=== PATIENT | male | born 1950 | race African-American/Black ===

== ENCOUNTER 2019-02-04 08:08 | Inpatient (IN) | payer MEDICARE, MEDICAID ==
[2019-02-04] VITALS (56 sets, daily range): BP systolic 71–118; BP diastolic 39–74
[~2019-02-04] VITALS: Ht 177.8 cm; Wt 60.9 kg
[2019-02-04] MEDS ORDERED: PIPERACILLIN/TAZ 3.375G PREMIX 50 ML IV ONE (08:30)
[2019-02-04] MEDS ORDERED: ETOMIDATE 2MG/ML 10ML VIAL IV ONE (08:30)
[2019-02-04] MEDS ORDERED: SUCCINYLCHOLINE CHLORIDE 200MG/10ML IV ONE (08:30)
[2019-02-04] MEDS ORDERED: VANCOMYCIN 1 G PREMIX 200 ML IV ONE (08:30)
[2019-02-04] MEDS ORDERED: PROPOFOL 10MG/ML 100ML 100 ML IV ONE (08:30)
[2019-02-04] MEDS ORDERED: SODIUM CHLORIDE 0.9% 1000ML BAG (SEPSIS BOLUS) IV ONE (08:30)
[2019-02-04 09:06] LABS: MEAN CORPUSCULAR HEMOGLOBIN 30.7 pg (28.0-32.0); MEAN CORPUSCULAR VOLUME 94.7 fL (80.0-94.0); MEAN PLATELET VOLUME 12.1 fl (7.4-10.4); RED BLOOD CELL COUNT 2.19 mill/uL (4.7-6.1); RED CELL DISTRIBUTION WIDTH 19.5 % (11.6-14.6)
[2019-02-04 09:19] LABS: HEMOGLOBIN. 6.7 g/dL (14.0-18.0)
[2019-02-04 09:20] LABS: HEMATOCRIT. 20.8 % (42.0-52.0); INR 1.2; PARTIAL THROMBOPLASTIN TIME 28.9 sec (23.4-31.0); PLATELET 332 x1000/uL (130-400); PROTHROMBIN TIME 12.5 sec (9.6-11.0)
[2019-02-04 09:51] LABS: BG BASE EXCESS 10.3 mmol/L (-2.0-2.0); BG CARBOXYHEMOGLOBIN 0.3 % (0.5-1.5); BG DEOXYHEMOGLOBIN 1.3 % (0.0-5.0); BG FRACTION INSPIRED OXYGEN 100; BG METHEMOGLOBIN 0.9 % (0.0-1.5); BG OXYGEN SATURATION 98.7 % (92.0-98.5); BG OXYHEMOGLOBIN 97.5 % (94.0-97.0); BG PCO2 41.9 mmHg (35.0-45.0); BG PH 7.527 (7.350-7.450); BG PO2 160.1 mmHg (75.0-100.0); BG SAMPLE SITE RIGHT BRACHIAL; BG TIDAL VOLUME(mL) 500 mL; BG TOTAL HEMOGLOBIN 7.6 g/dL (12.0-18.0); BG VENT MODE VENT - A/C; BG VENT RATE 12 set
[2019-02-04] MEDS ORDERED: LIDOCAINE HCL 1% 20ML VIAL (Pyxis) INJ ONE (10:11)
[2019-02-04 10:12] LABS: PLATELET ESTIMATE NORMAL
[2019-02-04] MEDS ORDERED: NOREPINEPHRINE 4 MG in DEXT 5% WATER 246 ML IV ONE (10:15)
[2019-02-04 10:28] LABS: BASOPHILS % 0.2 % (0.0-2.0); EOSINOPHILS % 0.1 % (0.0-5.0); HEMATOCRIT. 23.3 % (42.0-52.0); HEMOGLOBIN. 7.3 g/dL (14.0-18.0); LYMPHOCYTES % 21.4 % (20.0-50.0); MEAN CORPUSCULAR HEMOGLOBIN 29.1 pg (28.0-32.0); MEAN CORPUSCULAR VOLUME 93.1 fL (80.0-94.0); MONOCYTES % 3.5 % (2.0-8.0); NEUTROPHILS % 74.8 % (40.0-76.0); RED BLOOD CELL COUNT 2.51 mill/uL (4.7-6.1); RED CELL DISTRIBUTION WIDTH 18.6 % (11.6-14.6)
[2019-02-04 10:47] LABS: CHLORIDE 123 mEq/L (98-107)
[2019-02-04 10:48] LABS: PLATELET ESTIMATE NORMAL
[2019-02-04] MEDS ORDERED: NOREPINEPHRINE 4MG/250ML PMX 250 ML IV NR (11:15)
[2019-02-04] MEDS ORDERED: NOREPINEPHRINE 8 MG in DEXT 5% WATER 242 ML IV PRN (11:30)
[2019-02-04] MEDS ORDERED: PROPOFOL 10MG/ML 100ML 100 ML IV PRN (11:30)
[2019-02-04] MEDS ORDERED: DEXT 5%/0.45% NACL 1000ML 1,000 ML IV SCH (13:13)
[2019-02-04] MEDS ORDERED: ONDANSETRON HCL 4MG/2ML INJ IV PRN (13:15)
[2019-02-04] MEDS ORDERED: PIPERACILLIN/TAZ 3.375G PREMIX 50 ML IV SCH (13:15)
[2019-02-04] MEDS ORDERED: ACETAMINOPHEN 325MG TABLET GT PRN (13:15)
[2019-02-04] MEDS: DEXTROSE 5% WATER 1,000 ML IV SCH (14:15)
[2019-02-04] MEDS: NOREPINEPHRINE 8 MG in DEXT 5% WATER 242 ML IV PRN (15:00)
[2019-02-04 15:38] LABS: BG BASE EXCESS 5.3 mmol/L (-2.0-2.0); BG CARBOXYHEMOGLOBIN 0.3 % (0.5-1.5); BG METHEMOGLOBIN 0.8 % (0.0-1.5); BG OXYGEN SATURATION 94.9 % (92.0-98.5); BG OXYHEMOGLOBIN 93.9 % (94.0-97.0); BG PCO2 37.9 mmHg (35.0-45.0); BG PH 7.501 (7.350-7.450); BG PO2 75.5 mmHg (75.0-100.0); BG SAMPLE SITE RIGHT RADIAL; BG TIDAL VOLUME(mL) 500 mL; BG TOTAL HEMOGLOBIN 5.8 g/dL (12.0-18.0); BG VENT MODE VENT - A/C; BG VENT RATE 12 set
[2019-02-04 16:15] LABS: CLARITY URINE CLEAR (CLEAR); COLOR URINE YELLOW (YELLOW); KETONES URINE NEGATIVE (NEGATIVE); LEUKOCYTE ESTERASE URINE TRACE (NEGATIVE); NITRITE URINE NEGATIVE (NEGATIVE); OCCULT BLOOD URINE 1+ (NEGATIVE); PROTEIN URINE 1+ (NEGATIVE)
[2019-02-04] MEDS: IPRATROPIUM/ALBUTEROL 0.5-3(2.5)MG/3ML NEB HHN SCH ×2 (16:23→20:17)
[2019-02-04] MEDS: ACETYLCYSTEINE 100MG/ML 10% VIAL 4ML INH SCH (16:23)
[2019-02-04] MEDS: PIPERACILLIN/TAZOBACTAM 3.375 G in DEXT 5% WATER 100 ML IV SCH (16:55)
[2019-02-04] MEDS ORDERED: DOCUSATE SODIUM 100MG CAPSULE GT SCH (17:00)
[2019-02-04] MEDS: DOCUSATE SODIUM SUGAR FREE 100MG/10ML UDC GT SCH (17:49)
[2019-02-04] MEDS: MIDODRINE HCL 5MG TABLET GT SCH (17:49)
[2019-02-04] MEDS: AMIODARONE HCL 200 MG TABLET GT SCH (17:49)
[2019-02-04] MEDS: BLOOD SUGAR DIAGNOSTIC STRIP TEST SCH (18:00)
[2019-02-04] MEDS: INSULIN LISPRO 100 UNITS/ML SUBCUT SCH (18:00)
[2019-02-04 18:25] LABS: CREATINE KINASE MB FRACTION < 1.0 ng/mL (0.5-3.6)
[2019-02-04 19:26] LABS: FOLIC ACID (FOLATE) SERUM > 20.00 ng/mL (>5.38)
[2019-02-04 19:33] LABS: VITAMIN B12 SERUM 768 pg/mL (211-911)
[2019-02-04] MEDS ORDERED: DEXTROSE 50% WATER 50ML SYRINGE IV PRN (19:45)
[2019-02-04 20:21] LABS: FERRITIN 2975 ng/mL (22-322)
[2019-02-05] VITALS (85 sets, daily range): BP systolic 65–131; BP diastolic 35–92
[2019-02-05 00:02] LABS: HEMATOCRIT 24.2 % (42.0-52.0); HEMOGLOBIN 7.9 g/dL (14.0-18.0)
[2019-02-05 00:14] LABS: CREATINE KINASE MB FRACTION < 1.0 ng/mL (0.5-3.6)
[2019-02-05] MEDS: PIPERACILLIN/TAZOBACTAM 3.375 G in DEXT 5% WATER 100 ML IV SCH ×3 (01:00→15:53)
[2019-02-05] MEDS: INSULIN LISPRO 100 UNITS/ML SUBCUT SCH ×4 (01:01→17:55)
[2019-02-05] MEDS: NOREPINEPHRINE 8 MG in DEXT 5% WATER 242 ML IV PRN ×3 (01:03→17:56)
[2019-02-05] MEDS: IPRATROPIUM/ALBUTEROL 0.5-3(2.5)MG/3ML NEB HHN SCH ×5 (02:33→20:35)
[2019-02-05] MEDS: ACETYLCYSTEINE 100MG/ML 10% VIAL 4ML INH SCH ×3 (02:33→16:53)
[2019-02-05] MEDS: DEXTROSE 5% WATER 1,000 ML IV SCH ×2 (02:50→15:47)
[2019-02-05 05:36] LABS: BASOPHILS % 0.1 % (0.0-2.0); EOSINOPHILS % 0.2 % (0.0-5.0); HEMATOCRIT. 24.6 % (42.0-52.0); LYMPHOCYTES % 19.5 % (20.0-50.0); MEAN CORPUSCULAR HEMOGLOBIN 29.3 pg (28.0-32.0); MEAN CORPUSCULAR VOLUME 90.6 fL (80.0-94.0); MEAN PLATELET VOLUME 12.5 fl (7.4-10.4); MONOCYTES % 2.9 % (2.0-8.0); NEUTROPHILS % 77.3 % (40.0-76.0); PLATELET 98 x1000/uL (130-400); RED BLOOD CELL COUNT 2.72 mill/uL (4.7-6.1); RED CELL DISTRIBUTION WIDTH 17.5 % (11.6-14.6)
[2019-02-05 05:39] LABS: CHLORIDE 124 mEq/L (98-107)
[2019-02-05] MEDS: AMIODARONE HCL 200 MG TABLET GT SCH ×2 (06:00→17:53)
[2019-02-05] MEDS: BLOOD SUGAR DIAGNOSTIC STRIP TEST SCH ×4 (06:24→17:47)
[2019-02-05] MEDS ORDERED: VANCOMYCIN 1 G PREMIX 200 ML IV SCH (07:00)
[2019-02-05] MEDS ORDERED: POTASSIUM CHLORIDE 20MEQ/PACKET PO NR (07:15)
[2019-02-05 07:59] LABS: BG BASE EXCESS 4.5 mmol/L (-2.0-2.0); BG CARBOXYHEMOGLOBIN 0.2 % (0.5-1.5); BG FRACTION INSPIRED OXYGEN 50; BG METHEMOGLOBIN 0.3 % (0.0-1.5); BG OXYHEMOGLOBIN 97.5 % (94.0-97.0); BG PCO2 37.2 mmHg (35.0-45.0); BG PH 7.495 (7.350-7.450); BG PO2 103.6 mmHg (75.0-100.0); BG SAMPLE SITE RIGHT RADIAL; BG TIDAL VOLUME(mL) 500 mL; BG TOTAL HEMOGLOBIN 8.7 g/dL (12.0-18.0); BG VENT MODE VENT - A/C; BG VENT RATE 12 set
[2019-02-05] MEDS: MIDODRINE HCL 5MG TABLET GT SCH ×3 (09:02→17:53)
[2019-02-05] MEDS: DOCUSATE SODIUM SUGAR FREE 100MG/10ML UDC GT SCH ×2 (09:02→17:53)
[2019-02-05] MEDS: FAMOTIDINE 20MG/2ML VIAL IV SCH (09:03)
[2019-02-05 09:21] LABS: PHOSPHORUS 1.9 mg/dL (2.5-4.9)
[2019-02-05] MEDS ORDERED: BISACODYL 10MG SUPP PR PRN (10:30)
[2019-02-05] MEDS ORDERED: BISACODYL 5MG TABLET PO PRN (10:30)
[2019-02-05] MEDS ORDERED: SUCCINYLCHOLINE CHLORIDE 200MG/10ML IV ONE (17:25)
[2019-02-05] MEDS ORDERED: ETOMIDATE 2MG/ML 10ML VIAL IV ONE (17:25)
[2019-02-05] MEDS: VANCOMYCIN 1 G PREMIX 200 ML IV SCH (18:55)
[2019-02-05 20:22] LABS: HEMATOCRIT 25.4 % (42.0-52.0); HEMOGLOBIN 8.2 g/dL (14.0-18.0)
[2019-02-06] VITALS (90 sets, daily range): BP systolic 73–129; BP diastolic 43–75
[2019-02-06] MEDS: ACETYLCYSTEINE 100MG/ML 10% VIAL 4ML INH SCH ×2 (00:23→08:27)
[2019-02-06] MEDS: IPRATROPIUM/ALBUTEROL 0.5-3(2.5)MG/3ML NEB HHN SCH ×5 (00:23→20:35)
[2019-02-06] MEDS: PIPERACILLIN/TAZOBACTAM 3.375 G in DEXT 5% WATER 100 ML IV SCH ×3 (00:44→17:19)
[2019-02-06] MEDS: INSULIN LISPRO 100 UNITS/ML SUBCUT SCH ×4 (00:44→17:20)
[2019-02-06] MEDS: BLOOD SUGAR DIAGNOSTIC STRIP TEST SCH ×4 (00:45→17:20)
[2019-02-06] MEDS: NOREPINEPHRINE 8 MG in DEXT 5% WATER 242 ML IV PRN ×3 (01:42→19:31)
[2019-02-06 05:23] LABS: CHLORIDE 118 mEq/L (98-107)
[2019-02-06 05:25] LABS: BASOPHILS % 0.2 % (0.0-2.0); EOSINOPHILS % 1.2 % (0.0-5.0); HEMATOCRIT. 25.3 % (42.0-52.0); HEMOGLOBIN. 8.1 g/dL (14.0-18.0); LYMPHOCYTES % 16.2 % (20.0-50.0); MEAN CORPUSCULAR HEMOGLOBIN 29.2 pg (28.0-32.0); MEAN PLATELET VOLUME 12.5 fl (7.4-10.4); MONOCYTES % 3.3 % (2.0-8.0); NEUTROPHILS % 79.1 % (40.0-76.0); PLATELET 92 x1000/uL (130-400); RED BLOOD CELL COUNT 2.78 mill/uL (4.7-6.1); RED CELL DISTRIBUTION WIDTH 17.4 % (11.6-14.6)
[2019-02-06 05:31] LABS: PHOSPHORUS 1.6 mg/dL (2.5-4.9)
[2019-02-06] MEDS: DEXTROSE 5% WATER 1,000 ML IV SCH (05:54)
[2019-02-06] MEDS: AMIODARONE HCL 200 MG TABLET GT SCH ×2 (06:00→17:19)
[2019-02-06] MEDS: VANCOMYCIN 1 G PREMIX 200 ML IV SCH (07:08)
[2019-02-06] MEDS ORDERED: POTASSIUM PHOS,M-BASIC-D-BASIC 20 MMOL in DEXT 5% WATER 243.3333 ML IV NR (09:00)
[2019-02-06] MEDS: MIDODRINE HCL 5MG TABLET GT SCH ×3 (09:33→17:19)
[2019-02-06] MEDS: FAMOTIDINE 20MG/2ML VIAL IV SCH (09:33)
[2019-02-06] MEDS: DOCUSATE SODIUM SUGAR FREE 100MG/10ML UDC GT SCH ×2 (09:33→17:19)
[2019-02-06 10:19] LABS: BG BASE EXCESS 4.4 mmol/L (-2.0-2.0); BG CARBOXYHEMOGLOBIN 0.3 % (0.5-1.5); BG DEOXYHEMOGLOBIN 2.2 % (0.0-5.0); BG FRACTION INSPIRED OXYGEN 50; BG HCO3 ACT 28.1 mmol/L (22.0-26.0); BG METHEMOGLOBIN 0.4 % (0.0-1.5); BG OXYGEN SATURATION 97.8 % (92.0-98.5); BG OXYHEMOGLOBIN 97.1 % (94.0-97.0); BG PCO2 38.2 mmHg (35.0-45.0); BG PH 7.485 (7.350-7.450); BG PO2 104.2 mmHg (75.0-100.0); BG PRESSURE SUPPORT 12; BG SAMPLE SITE RIGHT RADIAL; BG TIDAL VOLUME(mL) 500 mL; BG TOTAL HEMOGLOBIN 7.9 g/dL (12.0-18.0); BG VENT MODE VENT - SIMV; BG VENT RATE 10 set
[2019-02-06] MEDS ORDERED: LORAZEPAM 2MG/ML CPJ IV PRN (11:30)
[2019-02-07] VITALS (101 sets, daily range): BP systolic 69–124; BP diastolic 41–80
[2019-02-07] MEDS: IPRATROPIUM/ALBUTEROL 0.5-3(2.5)MG/3ML NEB HHN SCH ×7 (00:15→20:32)
[2019-02-07] MEDS: ACETYLCYSTEINE 100MG/ML 10% VIAL 4ML INH SCH ×3 (00:16→17:37)
[2019-02-07] MEDS: BLOOD SUGAR DIAGNOSTIC STRIP TEST SCH ×4 (00:33→17:22)
[2019-02-07] MEDS: VANCOMYCIN 750 MG PREMIX 150 ML IV SCH ×2 (00:40→19:54)
[2019-02-07] MEDS: PIPERACILLIN/TAZOBACTAM 3.375 G in DEXT 5% WATER 100 ML IV SCH ×2 (00:40→09:27)
[2019-02-07] MEDS: INSULIN LISPRO 100 UNITS/ML SUBCUT SCH ×4 (06:00→17:23)
[2019-02-07] MEDS: AMIODARONE HCL 200 MG TABLET GT SCH ×2 (06:23→17:24)
[2019-02-07] MEDS: NOREPINEPHRINE 8 MG in DEXT 5% WATER 242 ML IV PRN ×2 (06:33→20:29)
[2019-02-07 08:30] LABS: BG CARBOXYHEMOGLOBIN 0.3 % (0.5-1.5); BG DEOXYHEMOGLOBIN 1.8 % (0.0-5.0); BG FRACTION INSPIRED OXYGEN 50; BG HCO3 ACT 25.2 mmol/L (22.0-26.0); BG METHEMOGLOBIN 0.4 % (0.0-1.5); BG OXYGEN SATURATION 98.2 % (92.0-98.5); BG OXYHEMOGLOBIN 97.5 % (94.0-97.0); BG PCO2 33.8 mmHg (35.0-45.0); BG PH 7.491 (7.350-7.450); BG PO2 107.9 mmHg (75.0-100.0); BG PRESSURE SUPPORT 12; BG SAMPLE SITE RIGHT RADIAL; BG TIDAL VOLUME(mL) 500 mL; BG TOTAL HEMOGLOBIN 8.2 g/dL (12.0-18.0); BG VENT MODE VENT - SIMV; BG VENT RATE 10 set
[2019-02-07 08:34] LABS: BASOPHILS % 0.3 % (0.0-2.0); EOSINOPHILS % 1.9 % (0.0-5.0); HEMATOCRIT. 23.2 % (42.0-52.0); HEMOGLOBIN. 7.5 g/dL (14.0-18.0); LYMPHOCYTES % 13.7 % (20.0-50.0); MEAN CORPUSCULAR HEMOGLOBIN 29.4 pg (28.0-32.0); MEAN CORPUSCULAR VOLUME 91.1 fL (80.0-94.0); MEAN PLATELET VOLUME 12.6 fl (7.4-10.4); MONOCYTES % 3.2 % (2.0-8.0); NEUTROPHILS % 80.9 % (40.0-76.0); PLATELET 98 x1000/uL (130-400); RED BLOOD CELL COUNT 2.55 mill/uL (4.7-6.1); RED CELL DISTRIBUTION WIDTH 17.3 % (11.6-14.6)
[2019-02-07 08:45] LABS: CHLORIDE 110 mEq/L (98-107)
[2019-02-07 08:51] LABS: PHOSPHORUS 2.3 mg/dL (2.5-4.9)
[2019-02-07] MEDS: MIDODRINE HCL 5MG TABLET GT SCH ×3 (09:24→16:48)
[2019-02-07] MEDS: FAMOTIDINE 20MG/2ML VIAL IV SCH (09:25)
[2019-02-07] MEDS: DOCUSATE SODIUM SUGAR FREE 100MG/10ML UDC GT SCH ×2 (09:25→16:47)
[2019-02-07] MEDS: MORPHINE SULFATE 2 MG/ML CPJ (NOT FOR IM USE) IV PRN (11:24)
[2019-02-07] MEDS ORDERED: POTASSIUM PHOS,M-BASIC-D-BASIC 10 MMOL in DEXT 5% WATER 246.6667 ML IV SCH (14:00)
[2019-02-07] MEDS: DEXTROSE 5% WATER 1,000 ML IV SCH ×2 (15:58→22:15)
[2019-02-07] MEDS: MEROPENEM 1,000 MG in SODIUM CHLORIDE 0.9% 100 ML IV SCH ×2 (16:47→23:00)
[2019-02-08] VITALS (90 sets, daily range): BP systolic 78–154; BP diastolic 29–88
[2019-02-08] MEDS: ACETYLCYSTEINE 100MG/ML 10% VIAL 4ML INH SCH ×3 (00:29→16:12)
[2019-02-08] MEDS: IPRATROPIUM/ALBUTEROL 0.5-3(2.5)MG/3ML NEB HHN SCH ×6 (00:29→21:24)
[2019-02-08 05:30] LABS: CHLORIDE 106 mEq/L (98-107)
[2019-02-08 05:46] LABS: BASOPHILS % 0.2 % (0.0-2.0); EOSINOPHILS % 1.8 % (0.0-5.0); HEMATOCRIT. 27.5 % (42.0-52.0); HEMOGLOBIN. 8.8 g/dL (14.0-18.0); LYMPHOCYTES % 13.7 % (20.0-50.0); MEAN CORPUSCULAR HEMOGLOBIN 29.2 pg (28.0-32.0); MEAN CORPUSCULAR VOLUME 90.9 fL (80.0-94.0); MEAN PLATELET VOLUME 12.1 fl (7.4-10.4); NEUTROPHILS % 80.3 % (40.0-76.0); PLATELET 93 x1000/uL (130-400); RED BLOOD CELL COUNT 3.03 mill/uL (4.7-6.1); RED CELL DISTRIBUTION WIDTH 17.2 % (11.6-14.6)
[2019-02-08] MEDS: INSULIN LISPRO 100 UNITS/ML SUBCUT SCH ×5 (06:00→23:58)
[2019-02-08] MEDS: BLOOD SUGAR DIAGNOSTIC STRIP TEST SCH ×5 (06:00→23:58)
[2019-02-08] MEDS: MEROPENEM 1,000 MG in SODIUM CHLORIDE 0.9% 100 ML IV SCH ×3 (06:49→21:53)
[2019-02-08] MEDS: AMIODARONE HCL 200 MG TABLET GT SCH ×2 (06:49→17:18)
[2019-02-08 07:59] LABS: BG BASE EXCESS 0.8 mmol/L (-2.0-2.0); BG DEOXYHEMOGLOBIN 2.5 % (0.0-5.0); BG FRACTION INSPIRED OXYGEN 40; BG METHEMOGLOBIN 0.4 % (0.0-1.5); BG OXYGEN SATURATION 97.5 % (92.0-98.5); BG OXYHEMOGLOBIN 97.1 % (94.0-97.0); BG PH 7.493 (7.350-7.450); BG PO2 93.3 mmHg (75.0-100.0); BG SAMPLE SITE RIGHT BRACHIAL; BG TIDAL VOLUME(mL) 500 mL; BG TOTAL HEMOGLOBIN 7.5 g/dL (12.0-18.0); BG VENT MODE VENT - A/C; BG VENT RATE 14 set
[2019-02-08] MEDS: NOREPINEPHRINE 8 MG in DEXT 5% WATER 242 ML IV PRN ×2 (08:00→18:09)
[2019-02-08] MEDS: MORPHINE SULFATE 2 MG/ML CPJ (NOT FOR IM USE) IV PRN (08:23)
[2019-02-08] MEDS: MIDODRINE HCL 5MG TABLET GT SCH ×3 (08:26→17:18)
[2019-02-08] MEDS: FAMOTIDINE 20MG/2ML VIAL IV SCH (08:26)
[2019-02-08] MEDS: DOCUSATE SODIUM SUGAR FREE 100MG/10ML UDC GT SCH ×2 (09:09→17:18)
[2019-02-08 10:44] LABS: BG BASE EXCESS 4.1 mmol/L (-2.0-2.0); BG CARBOXYHEMOGLOBIN 0.2 % (0.5-1.5); BG CPAP (cmH2O) 0 cm(H2O); BG DEOXYHEMOGLOBIN 3.6 % (0.0-5.0); BG HCO3 ACT 28.2 mmol/L (22.0-26.0); BG METHEMOGLOBIN 0.2 % (0.0-1.5); BG OXYGEN SATURATION 96.4 % (92.0-98.5); BG PCO2 40.3 mmHg (35.0-45.0); BG PH 7.463 (7.350-7.450); BG PO2 85.2 mmHg (75.0-100.0); BG SAMPLE SITE RIGHT RADIAL; BG TOTAL HEMOGLOBIN 8.2 g/dL (12.0-18.0); BG VENT MODE VENT - CPAP
[2019-02-08] MEDS: VANCOMYCIN 750 MG PREMIX 150 ML IV SCH (12:47)
[2019-02-08 16:10] LABS: BG BASE EXCESS 1.4 mmol/L (-2.0-2.0); BG CARBOXYHEMOGLOBIN 0.1 % (0.5-1.5); BG DEOXYHEMOGLOBIN 5.2 % (0.0-5.0); BG FRACTION INSPIRED OXYGEN 40; BG HCO3 ACT 24.7 mmol/L (22.0-26.0); BG METHEMOGLOBIN 0.2 % (0.0-1.5); BG OXYGEN SATURATION 94.8 % (92.0-98.5); BG OXYHEMOGLOBIN 94.5 % (94.0-97.0); BG PCO2 33.7 mmHg (35.0-45.0); BG PH 7.483 (7.350-7.450); BG PO2 72.6 mmHg (75.0-100.0); BG SAMPLE SITE RIGHT BRACHIAL; BG TOTAL HEMOGLOBIN 8.7 g/dL (12.0-18.0); BG VENT MODE MASK - AEROSOL
[2019-02-09] VITALS (90 sets, daily range): BP systolic 84–123; BP diastolic 46–78
[2019-02-09] MEDS: IPRATROPIUM/ALBUTEROL 0.5-3(2.5)MG/3ML NEB HHN SCH ×6 (00:08→20:18)
[2019-02-09] MEDS: ACETYLCYSTEINE 100MG/ML 10% VIAL 4ML INH SCH ×3 (00:09→15:47)
[2019-02-09] MEDS: NOREPINEPHRINE 8 MG in DEXT 5% WATER 242 ML IV PRN ×3 (02:45→18:48)
[2019-02-09] MEDS: INSULIN LISPRO 100 UNITS/ML SUBCUT SCH ×4 (06:00→23:49)
[2019-02-09] MEDS: BLOOD SUGAR DIAGNOSTIC STRIP TEST SCH ×4 (06:24→23:39)
[2019-02-09] MEDS: AMIODARONE HCL 200 MG TABLET GT SCH ×2 (06:26→17:17)
[2019-02-09] MEDS: MEROPENEM 1,000 MG in SODIUM CHLORIDE 0.9% 100 ML IV SCH ×2 (06:30→13:00)
[2019-02-09 06:41] LABS: CHLORIDE 109 mEq/L (98-107)
[2019-02-09 07:29] LABS: BASOPHILS % 0.3 % (0.0-2.0); EOSINOPHILS % 2.4 % (0.0-5.0); HEMATOCRIT. 29.2 % (42.0-52.0); HEMOGLOBIN. 9.4 g/dL (14.0-18.0); LYMPHOCYTES % 16.6 % (20.0-50.0); MEAN CORPUSCULAR HEMOGLOBIN 29.1 pg (28.0-32.0); MEAN CORPUSCULAR VOLUME 90.2 fL (80.0-94.0); MEAN PLATELET VOLUME 11.1 fl (7.4-10.4); MONOCYTES % 3.9 % (2.0-8.0); NEUTROPHILS % 76.8 % (40.0-76.0); PLATELET 138 x1000/uL (130-400); RED BLOOD CELL COUNT 3.24 mill/uL (4.7-6.1); RED CELL DISTRIBUTION WIDTH 17.4 % (11.6-14.6)
[2019-02-09] MEDS ORDERED: NOREPINEPHRINE 8 MG in DEXT 5% WATER 242 ML IV PRN (09:15)
[2019-02-09] MEDS: MIDODRINE HCL 5MG TABLET GT SCH ×3 (09:52→17:17)
[2019-02-09] MEDS: DOCUSATE SODIUM SUGAR FREE 100MG/10ML UDC GT SCH ×2 (09:52→17:17)
[2019-02-09] MEDS: ALBUMIN HUMAN 25GM/100ML (25%) IV SCH (09:53)
[2019-02-09] MEDS: VANCOMYCIN 750 MG PREMIX 150 ML IV SCH (10:41)
[2019-02-09] MEDS: FAMOTIDINE 20MG/2ML VIAL IV SCH (10:41)
[2019-02-09] MEDS ORDERED: MORPHINE SULFATE 2 MG/ML CPJ (NOT FOR IM USE) IV PRN (11:30)
[2019-02-09] MEDS: CEFTRIAXONE 1 G PREMIX 50 ML IV SCH (15:19)
[2019-02-09] MEDS: METRONIDAZOLE 500MG TABLET PO SCH (21:27)
[2019-02-10] VITALS (101 sets, daily range): BP systolic 78–159; BP diastolic 38–98
[2019-02-10] MEDS: IPRATROPIUM/ALBUTEROL 0.5-3(2.5)MG/3ML NEB HHN SCH ×6 (00:53→23:59)
[2019-02-10] MEDS: INSULIN LISPRO 100 UNITS/ML SUBCUT SCH ×3 (06:00→18:00)
[2019-02-10] MEDS: VANCOMYCIN 1 G PREMIX 200 ML IV SCH ×2 (06:06→23:56)
[2019-02-10] MEDS: BLOOD SUGAR DIAGNOSTIC STRIP TEST SCH ×4 (06:07→23:56)
[2019-02-10] MEDS: AMIODARONE HCL 200 MG TABLET GT SCH ×2 (06:17→17:19)
[2019-02-10] MEDS: METRONIDAZOLE 500MG TABLET PO SCH ×2 (08:22→20:09)
[2019-02-10] MEDS: MIDODRINE HCL 5MG TABLET GT SCH ×3 (08:22→16:07)
[2019-02-10] MEDS: DOCUSATE SODIUM SUGAR FREE 100MG/10ML UDC GT SCH ×2 (08:22→16:08)
[2019-02-10] MEDS: FAMOTIDINE 20MG/2ML VIAL IV SCH (08:23)
[2019-02-10] MEDS: ALBUMIN HUMAN 25GM/100ML (25%) IV SCH (08:23)
[2019-02-10 10:59] LABS: BASOPHILS % 0.2 % (0.0-2.0); EOSINOPHILS % 1.8 % (0.0-5.0); HEMATOCRIT. 25.3 % (42.0-52.0); HEMOGLOBIN. 8.2 g/dL (14.0-18.0); LYMPHOCYTES % 21.5 % (20.0-50.0); MEAN CORPUSCULAR HEMOGLOBIN 28.9 pg (28.0-32.0); MEAN CORPUSCULAR VOLUME 89.5 fL (80.0-94.0); MEAN PLATELET VOLUME 11.1 fl (7.4-10.4); MONOCYTES % 5.5 % (2.0-8.0); PLATELET 139 x1000/uL (130-400); RED BLOOD CELL COUNT 2.83 mill/uL (4.7-6.1); RED CELL DISTRIBUTION WIDTH 17.7 % (11.6-14.6)
[2019-02-10 11:07] LABS: CHLORIDE 107 mEq/L (98-107)
[2019-02-10] MEDS: CEFTRIAXONE 1 G PREMIX 50 ML IV SCH (15:08)
[2019-02-10] MEDS: NOREPINEPHRINE 8 MG in DEXT 5% WATER 242 ML IV PRN (22:00)
[2019-02-11] VITALS (100 sets, daily range): BP systolic 82–136; BP diastolic 34–88
[2019-02-11] MEDS: IPRATROPIUM/ALBUTEROL 0.5-3(2.5)MG/3ML NEB HHN SCH ×5 (03:05→20:30)
[2019-02-11] MEDS: BLOOD SUGAR DIAGNOSTIC STRIP TEST SCH ×3 (05:25→18:08)
[2019-02-11] MEDS: AMIODARONE HCL 200 MG TABLET GT SCH ×2 (05:30→18:08)
[2019-02-11] MEDS: INSULIN LISPRO 100 UNITS/ML SUBCUT SCH ×4 (05:40→18:00)
[2019-02-11 06:54] LABS: BASOPHILS % 0.3 % (0.0-2.0); EOSINOPHILS % 1.8 % (0.0-5.0); HEMATOCRIT. 22.3 % (42.0-52.0); HEMOGLOBIN. 7.3 g/dL (14.0-18.0); LYMPHOCYTES % 20.8 % (20.0-50.0); MEAN CORPUSCULAR HEMOGLOBIN 29.2 pg (28.0-32.0); MEAN CORPUSCULAR VOLUME 89.7 fL (80.0-94.0); MEAN PLATELET VOLUME 10.2 fl (7.4-10.4); MONOCYTES % 5.5 % (2.0-8.0); NEUTROPHILS % 71.6 % (40.0-76.0); PLATELET 175 x1000/uL (130-400); RED BLOOD CELL COUNT 2.49 mill/uL (4.7-6.1); RED CELL DISTRIBUTION WIDTH 17.5 % (11.6-14.6)
[2019-02-11 07:20] LABS: CHLORIDE 106 mEq/L (98-107)
[2019-02-11] MEDS: DOCUSATE SODIUM SUGAR FREE 100MG/10ML UDC GT SCH ×2 (08:20→17:53)
[2019-02-11] MEDS: FAMOTIDINE 20MG/2ML VIAL IV SCH (08:20)
[2019-02-11] MEDS: METRONIDAZOLE 500MG TABLET PO SCH ×2 (08:20→21:18)
[2019-02-11] MEDS: ALBUMIN HUMAN 25GM/100ML (25%) IV SCH (08:20)
[2019-02-11] MEDS: MIDODRINE HCL 5MG TABLET GT SCH ×3 (08:21→17:53)
[2019-02-11] MEDS ORDERED: SORBITOL 70% SOLN 30ML PO NR (12:15)
[2019-02-11] MEDS: NOREPINEPHRINE 8 MG in DEXT 5% WATER 242 ML IV PRN (15:13)
[2019-02-11] MEDS: VANCOMYCIN 1 G PREMIX 200 ML IV SCH (21:17)
[2019-02-11] MEDS: CEFTRIAXONE 1 G PREMIX 50 ML IV SCH (21:17)
[2019-02-12] VITALS (73 sets, daily range): BP systolic 79–124; BP diastolic 47–80
[2019-02-12] MEDS: IPRATROPIUM/ALBUTEROL 0.5-3(2.5)MG/3ML NEB HHN SCH ×6 (00:58→22:51)
[2019-02-12] MEDS: NOREPINEPHRINE 8 MG in DEXT 5% WATER 242 ML IV PRN (05:42)
[2019-02-12] MEDS: INSULIN LISPRO 100 UNITS/ML SUBCUT SCH ×4 (05:43→23:22)
[2019-02-12] MEDS: AMIODARONE HCL 200 MG TABLET GT SCH (05:43)
[2019-02-12] MEDS: BLOOD SUGAR DIAGNOSTIC STRIP TEST SCH ×4 (05:43→23:22)
[2019-02-12 07:23] LABS: BASOPHILS % 0.3 % (0.0-2.0); EOSINOPHILS % 1.5 % (0.0-5.0); HEMATOCRIT. 27.1 % (42.0-52.0); HEMOGLOBIN. 8.8 g/dL (14.0-18.0); MEAN CORPUSCULAR HEMOGLOBIN 29.5 pg (28.0-32.0); MEAN CORPUSCULAR VOLUME 90.5 fL (80.0-94.0); MEAN PLATELET VOLUME 10.3 fl (7.4-10.4); MONOCYTES % 4.3 % (2.0-8.0); NEUTROPHILS % 75.9 % (40.0-76.0); PLATELET 223 x1000/uL (130-400); RED CELL DISTRIBUTION WIDTH 16.4 % (11.6-14.6)
[2019-02-12 07:26] LABS: CHLORIDE 106 mEq/L (98-107)
[2019-02-12] MEDS: FAMOTIDINE 20MG/2ML VIAL IV SCH (08:39)
[2019-02-12] MEDS: MIDODRINE HCL 5MG TABLET GT SCH ×3 (08:39→17:00)
[2019-02-12] MEDS: METRONIDAZOLE 500MG TABLET PO SCH ×2 (08:39→20:47)
[2019-02-12] MEDS: DOCUSATE SODIUM SUGAR FREE 100MG/10ML UDC GT SCH ×2 (08:39→17:00)
[2019-02-12] MEDS: ACETAMINOPHEN 650MG/20.3ML UDC GT PRN (10:01)
[2019-02-12] MEDS: VANCOMYCIN 1 G PREMIX 200 ML IV SCH (10:01)
[2019-02-12] MEDS: CEFTRIAXONE 1 G PREMIX 50 ML IV SCH (16:00)
[2019-02-12] MEDS: VANCOMYCIN 1250MG in DEXTROSE 5% WATER 250ML IV SCH (20:47)
[2019-02-13] VITALS (99 sets, daily range): BP systolic 72–121; BP diastolic 40–74
[2019-02-13] MEDS: IPRATROPIUM/ALBUTEROL 0.5-3(2.5)MG/3ML NEB HHN SCH ×6 (01:06→20:59)
[2019-02-13] MEDS: AMIODARONE HCL 200 MG TABLET GT SCH ×2 (05:00→18:33)
[2019-02-13] MEDS: BLOOD SUGAR DIAGNOSTIC STRIP TEST SCH ×3 (05:01→18:33)
[2019-02-13] MEDS: INSULIN LISPRO 100 UNITS/ML SUBCUT SCH ×3 (05:11→18:00)
[2019-02-13 06:59] LABS: BASOPHILS % 0.3 % (0.0-2.0); EOSINOPHILS % 0.7 % (0.0-5.0); HEMATOCRIT. 26.9 % (42.0-52.0); LYMPHOCYTES % 18.9 % (20.0-50.0); MEAN CORPUSCULAR HEMOGLOBIN 30.2 pg (28.0-32.0); MEAN CORPUSCULAR VOLUME 90.2 fL (80.0-94.0); MEAN PLATELET VOLUME 9.7 fl (7.4-10.4); MONOCYTES % 4.5 % (2.0-8.0); NEUTROPHILS % 75.6 % (40.0-76.0); PLATELET 210 x1000/uL (130-400); RED BLOOD CELL COUNT 2.98 mill/uL (4.7-6.1); RED CELL DISTRIBUTION WIDTH 17.2 % (11.6-14.6)
[2019-02-13 07:41] LABS: CHLORIDE 106 mEq/L (98-107)
[2019-02-13] MEDS ORDERED: SODIUM CHLORIDE 0.9% 250 ML IV NR (08:45)
[2019-02-13] MEDS ORDERED: DOCUSATE SODIUM SUGAR FREE 100MG/10ML UDC GT PRN (08:45)
[2019-02-13] MEDS: MIDODRINE HCL 5MG TABLET GT SCH ×3 (09:02→18:33)
[2019-02-13] MEDS: METRONIDAZOLE 500MG TABLET PO SCH ×2 (09:02→21:36)
[2019-02-13] MEDS: FAMOTIDINE 20MG/2ML VIAL IV SCH (09:02)
[2019-02-13] MEDS: CEFTRIAXONE 1 G PREMIX 50 ML IV SCH (16:53)
[2019-02-13] MEDS: VANCOMYCIN 1250MG in DEXTROSE 5% WATER 250ML IV SCH (21:25)
[2019-02-13] MEDS: NOREPINEPHRINE 8 MG in DEXT 5% WATER 242 ML IV PRN (21:27)
[2019-02-14] VITALS (80 sets, daily range): BP systolic 75–129; BP diastolic 42–83
[2019-02-14] MEDS: IPRATROPIUM/ALBUTEROL 0.5-3(2.5)MG/3ML NEB HHN SCH ×6 (00:27→21:01)
[2019-02-14] MEDS: BLOOD SUGAR DIAGNOSTIC STRIP TEST SCH ×4 (00:29→17:50)
[2019-02-14] MEDS: INSULIN LISPRO 100 UNITS/ML SUBCUT SCH ×4 (06:00→17:50)
[2019-02-14] MEDS: AMIODARONE HCL 200 MG TABLET GT SCH ×2 (06:29→17:51)
[2019-02-14 07:53] LABS: HEMATOCRIT. 24.7 % (42.0-52.0); HEMOGLOBIN. 8.1 g/dL (14.0-18.0); MEAN CORPUSCULAR HEMOGLOBIN 29.7 pg (28.0-32.0); MEAN PLATELET VOLUME 9.4 fl (7.4-10.4); PLATELET 206 x1000/uL (130-400); RED BLOOD CELL COUNT 2.72 mill/uL (4.7-6.1); RED CELL DISTRIBUTION WIDTH 17.6 % (11.6-14.6)
[2019-02-14 07:59] LABS: CHLORIDE 106 mEq/L (98-107)
[2019-02-14 08:53] LABS: PLATELET ESTIMATE NORMAL
[2019-02-14] MEDS: METRONIDAZOLE 500MG TABLET PO SCH ×2 (09:00→21:34)
[2019-02-14] MEDS: MIDODRINE HCL 5MG TABLET GT SCH ×2 (09:00→12:14)
[2019-02-14] MEDS: FAMOTIDINE 20MG/2ML VIAL IV SCH (09:00)
[2019-02-14] MEDS ORDERED: ALBUMIN HUMAN 25GM/100ML (25%) IV NR (10:30)
[2019-02-14] MEDS: MIDODRINE HCL 5MG TABLET PO SCH (16:20)
[2019-02-14] MEDS: CEFTRIAXONE 1 G PREMIX 50 ML IV SCH (16:31)
[2019-02-14] MEDS: VANCOMYCIN 1250MG in DEXTROSE 5% WATER 250ML IV SCH (20:06)
[2019-02-15 00:51] VITALS: BP 105/61
[2019-02-15] MEDS: IPRATROPIUM/ALBUTEROL 0.5-3(2.5)MG/3ML NEB HHN SCH ×5 (02:16→20:49)
[2019-02-15 04:00] VITALS: BP 98/57
[2019-02-15] MEDS: INSULIN LISPRO 100 UNITS/ML SUBCUT SCH ×5 (06:00→23:31)
[2019-02-15] MEDS: BLOOD SUGAR DIAGNOSTIC STRIP TEST SCH ×5 (06:37→23:30)
[2019-02-15] MEDS: AMIODARONE HCL 200 MG TABLET GT SCH ×2 (06:44→17:42)
[2019-02-15 06:53] LABS: CHLORIDE 106 mEq/L (98-107)
[2019-02-15 08:40] VITALS: BP 101/65
[2019-02-15] MEDS: FAMOTIDINE 20MG/2ML VIAL IV SCH (10:11)
[2019-02-15] MEDS: MIDODRINE HCL 5MG TABLET PO SCH ×3 (10:13→17:43)
[2019-02-15] MEDS: METRONIDAZOLE 500MG TABLET PO SCH ×2 (10:24→21:26)
[2019-02-15 12:18] VITALS: BP 97/59
[2019-02-15] MEDS ORDERED: VANCOMYCIN 1 G PREMIX 200 ML IV SCH (14:00)
[2019-02-15 15:59] VITALS: BP 96/62
[2019-02-15] MEDS: CEFTRIAXONE 1 G PREMIX 50 ML IV SCH (17:43)
[2019-02-15 20:27] VITALS: BP 98/61
[2019-02-16 00:34] VITALS: BP 103/65
[2019-02-16] MEDS: IPRATROPIUM/ALBUTEROL 0.5-3(2.5)MG/3ML NEB HHN SCH ×4 (00:55→12:03)
[2019-02-16 04:29] VITALS: BP 108/63
[2019-02-16] MEDS: AMIODARONE HCL 200 MG TABLET GT SCH (05:32)
[2019-02-16] MEDS: BLOOD SUGAR DIAGNOSTIC STRIP TEST SCH ×2 (05:43→12:44)
[2019-02-16] MEDS: INSULIN LISPRO 100 UNITS/ML SUBCUT SCH ×2 (05:43→12:00)
[2019-02-16 08:00] VITALS: BP 97/60
[2019-02-16] MEDS: FAMOTIDINE 20MG/2ML VIAL IV SCH (08:41)
[2019-02-16] MEDS: METRONIDAZOLE 500MG TABLET PO SCH (08:42)
[2019-02-16] MEDS: MIDODRINE HCL 5MG TABLET PO SCH (08:42)
[2019-02-16 10:47] VITALS: BP 97/60
[2019-02-16] MEDS: ACETAMINOPHEN 650MG/20.3ML UDC GT PRN (11:46)
[2019-02-16 12:00] VITALS: BP 111/62
[2019-02-16 13:40] LABS: HEMOGLOBIN. 8.5 g/dL (14.0-18.0); MEAN CORPUSCULAR HEMOGLOBIN 30.1 pg (28.0-32.0); MEAN CORPUSCULAR VOLUME 91.9 fL (80.0-94.0); MEAN PLATELET VOLUME 9.9 fl (7.4-10.4); PLATELET 234 x1000/uL (130-400); RED BLOOD CELL COUNT 2.82 mill/uL (4.7-6.1); RED CELL DISTRIBUTION WIDTH 17.7 % (11.6-14.6)
[2019-02-16 14:02] LABS: PLATELET ESTIMATE NORMAL
== END 2019-02-16 13:55 | DRG 870 ==
LOC: ER 08:08 → MICUNO 10:24 → EDBEDREQTM 10:32 → EDBEDREQ 10:32 → ENRESERV 10:37 → 5EST 02-08 20:00 → 6WST 02-14 23:40
PROVIDERS: ADMIT Internal Medicine; ATTEND Internal Medicine
PROC: 5A1955Z Respiratory Ventilation, Greater than 96 Consecutive Hours (ICD-10-PCS; principal; 2019-02-04)
PROC: 30233N1 Transfusion of Nonautologous Red Blood Cells into Peripheral Vein, Percutaneous Approach (ICD-10-PCS; 2019-02-04)
PROC: 02HV33Z Insertion of Infusion Device into Superior Vena Cava, Percutaneous Approach (ICD-10-PCS; 2019-02-04)
PROC: B5181ZA Fluoroscopy of Superior Vena Cava using Low Osmolar Contrast, Guidance (ICD-10-PCS; 2019-02-04)
PROC: B548ZZA Ultrasonography of Superior Vena Cava, Guidance (ICD-10-PCS; 2019-02-04)
PROC: 0BH17EZ Insertion of Endotracheal Airway into Trachea, Via Natural or Artificial Opening (ICD-10-PCS; 2019-02-04)
PROC: 0BH17EZ Insertion of Endotracheal Airway into Trachea, Via Natural or Artificial Opening (ICD-10-PCS; 2019-02-05)
DX: A41.2 Sepsis due to unspecified staphylococcus (principal); E43 Unspecified severe protein-calorie malnutrition; J96.01 Acute respiratory failure with hypoxia; J18.9 Pneumonia, unspecified organism; R65.21 Severe sepsis with septic shock; G92 Toxic encephalopathy; I50.43 Acute on chronic combined systolic (congestive) and diastolic (congestive) heart failure; N17.9 Acute kidney failure, unspecified; N39.0 Urinary tract infection, site not specified; E87.0 Hyperosmolality and hypernatremia; Z68.1 Body mass index [BMI] 19.9 or less, adult; J44.0 Chronic obstructive pulmonary disease with (acute) lower respiratory infection; E87.3 Alkalosis; I12.9 Hypertensive chronic kidney disease with stage 1 through stage 4 chronic kidney disease, or unspecified chronic kidney disease; E86.0 Dehydration; E86.1 Hypovolemia; E87.6 Hypokalemia; F03.90 Unspecified dementia, unspecified severity, without behavioral disturbance, psychotic disturbance, mood disturbance, and anxiety; D69.6 Thrombocytopenia, unspecified; D64.9 Anemia, unspecified; K21.9 Gastro-esophageal reflux disease without esophagitis; N18.9 Chronic kidney disease, unspecified; E11.22 Type 2 diabetes mellitus with diabetic chronic kidney disease; N40.1 Benign prostatic hyperplasia with lower urinary tract symptoms; R33.8 Other retention of urine; I48.0 Paroxysmal atrial fibrillation; R13.10 Dysphagia, unspecified; L89.159 Pressure ulcer of sacral region, unspecified stage; Z78.1 Physical restraint status; Z74.01 Bed confinement status; Z86.73 Personal history of transient ischemic attack (TIA), and cerebral infarction without residual deficits; Z93.1 Gastrostomy status; Z79.01 Long term (current) use of anticoagulants; Z22.322 Carrier or suspected carrier of Methicillin resistant Staphylococcus aureus
CPT/HCPCS: 36415; 36600; 71045; 76937; 80048; 80202; 81003; 82040; 82270; 82375; 82553; 82607; 82728; 82746; 82805; 82962; 83036; 83540; 83550; 83605; 83735; 83880; 84100; 84145; 84443; 84478; 84484; 84550; 85014; 85018; 85651; 86140; 86850; 86900; 86920; 87070; 87077; 87186; 93005; 93970; 94002; 94003; 94640; 94667; 96374; 97161; 99291; J0330; J0696; J1815; J2060; J2185; J2270; J2405; J2543; J2704; J3370; J3490; J7030; J7050; J7060; J7070; J7608; J7620; P9016; P9021; P9047

== ENCOUNTER 2019-03-10 15:42 | Inpatient (IN) | payer MEDICARE, MEDICAID ==
[~2019-03-10] VITALS: Ht 167.6 cm; Wt 73.5 kg
[2019-03-10] MEDS ORDERED: SODIUM CHLORIDE 0.9% 1000ML BAG (SEPSIS BOLUS) IV ONE (16:30)
[2019-03-10] MEDS ORDERED: PIPERACILLIN/TAZ 3.375G PREMIX 50 ML IV ONE (16:30)
[2019-03-10 16:36] LABS: BASOPHILS % 0.1 % (0.0-2.0); EOSINOPHILS % 0.1 % (0.0-5.0); HEMATOCRIT. 31.8 % (42.0-52.0); HEMOGLOBIN. 10.3 g/dL (14.0-18.0); LYMPHOCYTES % 20.1 % (20.0-50.0); MEAN CORPUSCULAR HEMOGLOBIN 30.2 pg (28.0-32.0); MEAN CORPUSCULAR VOLUME 93.3 fL (80.0-94.0); MEAN PLATELET VOLUME 10.4 fl (7.4-10.4); MONOCYTES % 2.7 % (2.0-8.0); PLATELET 196 x1000/uL (130-400); RED BLOOD CELL COUNT 3.41 mill/uL (4.7-6.1); RED CELL DISTRIBUTION WIDTH 19.5 % (11.6-14.6)
[2019-03-10 16:40] LABS: INR 1.3; PROTHROMBIN TIME 12.7 sec (9.6-11.0)
[2019-03-10 16:42] LABS: CHLORIDE 104 mEq/L (98-107)
[2019-03-10] MEDS ORDERED: ALBUTEROL (0.5%) 2.5MG/0.5ML NEB HHN ONE (16:45)
[2019-03-10] MEDS: LEVOFLOXACIN 750MG PREMIX 150 ML IV ONE ×2 (17:17→17:19)
[2019-03-10] MEDS ORDERED: ACETAMINOPHEN 650MG SUPP PR NR (20:15)
[2019-03-10] MEDS ORDERED: SODIUM CHLORIDE 0.9% 1,000 ML IV SCH (20:30)
[2019-03-10 21:24] LABS: CLARITY URINE CLOUDY (CLEAR); COLOR URINE YELLOW (YELLOW); KETONES URINE NEGATIVE (NEGATIVE); LEUKOCYTE ESTERASE URINE NEGATIVE (NEGATIVE); NITRITE URINE NEGATIVE (NEGATIVE); OCCULT BLOOD URINE 3+ (NEGATIVE); PH URINE 5.5 (4.5-8.0); PROTEIN URINE 1+ (NEGATIVE); SPECIFIC GRAVITY URINE 1.022 (1.005-1.030)
[2019-03-10 22:00] VITALS: BP 92/56
[2019-03-10] MEDS ORDERED: ACETAMINOPHEN 650MG SUPP PR PRN (23:30)
[2019-03-10] MEDS ORDERED: IPRATROPIUM/ALBUTEROL 0.5-3(2.5)MG/3ML NEB HHN PRN (23:30)
[2019-03-10] MEDS ORDERED: ACETAMINOPHEN 325MG TABLET GT PRN (23:30)
[2019-03-11] VITALS (21 sets, daily range): BP systolic 82–113; BP diastolic 46–63
[2019-03-11] MEDS ORDERED: DEXTROSE 50% WATER 50ML SYRINGE IV PRN
[2019-03-11] MEDS: INSULIN LISPRO 100 UNITS/ML SUBCUT SCH ×5 (00:30→23:57)
[2019-03-11] MEDS: BLOOD SUGAR DIAGNOSTIC STRIP TEST SCH ×5 (00:30→23:57)
[2019-03-11] MEDS ORDERED: PIPERACILLIN/TAZOBACTAM 3.375 G in DEXT 5% WATER 100 ML IV SCH (02:00)
[2019-03-11] MEDS: PIPERACILLIN/TAZOBACTAM 3.375 G in DEXT 5% WATER 100 ML IV SCH ×3 (02:36→18:27)
[2019-03-11] MEDS: DEXT 5%/0.45% NACL 1000ML 1,000 ML IV SCH ×2 (02:37→16:38)
[2019-03-11 05:12] LABS: MEAN CORPUSCULAR HEMOGLOBIN 30.4 pg (28.0-32.0); MEAN CORPUSCULAR VOLUME 93.7 fL (80.0-94.0); MEAN PLATELET VOLUME 10.1 fl (7.4-10.4); PLATELET 156 x1000/uL (130-400); RED BLOOD CELL COUNT 2.01 mill/uL (4.7-6.1); RED CELL DISTRIBUTION WIDTH 19.9 % (11.6-14.6)
[2019-03-11 05:21] LABS: CHLORIDE 112 mEq/L (98-107); HEMATOCRIT. 18.9 % (42.0-52.0); HEMOGLOBIN. 6.1 g/dL (14.0-18.0)
[2019-03-11 08:21] LABS: PLATELET ESTIMATE NORMAL
[2019-03-11 10:32] LABS: BG BASE EXCESS -0.1 mmol/L (-2.0-2.0); BG CARBOXYHEMOGLOBIN 0.6 % (0.5-1.5); BG DEOXYHEMOGLOBIN 4.8 % (0.0-5.0); BG FRACTION INSPIRED OXYGEN 32; BG HCO3 ACT 23.3 mmol/L (22.0-26.0); BG METHEMOGLOBIN 0.4 % (0.0-1.5); BG OXYGEN SATURATION 95.2 % (92.0-98.5); BG OXYHEMOGLOBIN 94.2 % (94.0-97.0); BG PCO2 32.4 mmHg (35.0-45.0); BG PH 7.474 (7.350-7.450); BG PO2 71.9 mmHg (75.0-100.0); BG SAMPLE SITE RIGHT RADIAL; BG TOTAL HEMOGLOBIN 8.2 g/dL (12.0-18.0); BG VENT MODE NASAL CANNULA
[2019-03-11] MEDS ORDERED: IPRATROPIUM/ALBUTEROL 0.5-3(2.5)MG/3ML NEB HHN PRN (13:45)
[2019-03-11] MEDS: ACETYLCYSTEINE 100MG/ML 10% VIAL 4ML INH SCH (15:41)
[2019-03-11] MEDS: IPRATROPIUM/ALBUTEROL 0.5-3(2.5)MG/3ML NEB HHN SCH ×2 (15:41→21:22)
[2019-03-11] MEDS ORDERED: POTASSIUM CHLORIDE 20MEQ/PACKET GT NR (15:45)
[2019-03-11] MEDS ORDERED: VANCOMYCIN 1 G PREMIX 200 ML IV NR (17:00)
[2019-03-11 21:01] LABS: HEMATOCRIT 32.2 % (42.0-52.0); HEMOGLOBIN 10.5 g/dL (14.0-18.0)
[2019-03-11] MEDS: PANTOPRAZOLE 40MG DR TABLET PO SCH (22:23)
[2019-03-12] VITALS (12 sets, daily range): BP systolic 96–118; BP diastolic 45–68
[2019-03-12] MEDS: ACETYLCYSTEINE 100MG/ML 10% VIAL 4ML INH SCH ×3 (01:02→17:15)
[2019-03-12] MEDS: IPRATROPIUM/ALBUTEROL 0.5-3(2.5)MG/3ML NEB HHN SCH ×6 (01:02→20:40)
[2019-03-12] MEDS: PIPERACILLIN/TAZOBACTAM 3.375 G in DEXT 5% WATER 100 ML IV SCH ×3 (01:37→17:55)
[2019-03-12] MEDS: DEXT 5%/0.45% NACL 1000ML 1,000 ML IV SCH (03:53)
[2019-03-12] MEDS: INSULIN LISPRO 100 UNITS/ML SUBCUT SCH ×3 (06:00→18:00)
[2019-03-12] MEDS ORDERED: VANCOMYCIN 750 MG PREMIX 150 ML IV SCH (06:00)
[2019-03-12] MEDS: BLOOD SUGAR DIAGNOSTIC STRIP TEST SCH ×3 (06:13→17:55)
[2019-03-12 06:36] LABS: CHLORIDE 113 mEq/L (98-107)
[2019-03-12 06:46] LABS: BASOPHILS % 0.1 % (0.0-2.0); EOSINOPHILS % 0.2 % (0.0-5.0); HEMATOCRIT. 24.9 % (42.0-52.0); HEMOGLOBIN. 8.3 g/dL (14.0-18.0); LYMPHOCYTES % 11.9 % (20.0-50.0); MEAN CORPUSCULAR HEMOGLOBIN 30.1 pg (28.0-32.0); MEAN CORPUSCULAR VOLUME 90.3 fL (80.0-94.0); MEAN PLATELET VOLUME 10.2 fl (7.4-10.4); MONOCYTES % 3.9 % (2.0-8.0); NEUTROPHILS % 83.9 % (40.0-76.0); PLATELET 124 x1000/uL (130-400); RED BLOOD CELL COUNT 2.76 mill/uL (4.7-6.1); RED CELL DISTRIBUTION WIDTH 19.1 % (11.6-14.6)
[2019-03-12] MEDS: PANTOPRAZOLE 40MG DR TABLET PO SCH ×2 (06:50→22:57)
[2019-03-12] MEDS ORDERED: POTASSIUM CHLORIDE 20MEQ/PACKET PEG NR (09:00)
[2019-03-12] MEDS ORDERED: SODIUM BICARBONATE 4% (2.4MEQ) 5ML VIAL IV ONE (11:29)
[2019-03-12] MEDS ORDERED: LIDOCAINE HCL 1% 20ML VIAL (Pyxis) INJ ONE (11:29)
[2019-03-12] MEDS: VANCOMYCIN 1 G PREMIX 200 ML IV SCH (17:04)
[2019-03-12 17:25] LABS: MEAN CORPUSCULAR HEMOGLOBIN 30.1 pg (28.0-32.0); MEAN CORPUSCULAR VOLUME 90.3 fL (80.0-94.0); PLATELET 111 x1000/uL (130-400); RED BLOOD CELL COUNT 2.94 mill/uL (4.7-6.1); RED CELL DISTRIBUTION WIDTH 19.4 % (11.6-14.6)
[2019-03-12 17:31] LABS: HEMATOCRIT 26.5 % (42.0-52.0); HEMOGLOBIN 8.8 g/dL (14.0-18.0)
[2019-03-13] VITALS (13 sets, daily range): BP systolic 84–121; BP diastolic 49–76
[2019-03-13] MEDS: IPRATROPIUM/ALBUTEROL 0.5-3(2.5)MG/3ML NEB HHN SCH ×6 (00:14→21:00)
[2019-03-13] MEDS: ACETYLCYSTEINE 100MG/ML 10% VIAL 4ML INH SCH ×3 (00:15→15:41)
[2019-03-13] MEDS: PIPERACILLIN/TAZOBACTAM 3.375 G in DEXT 5% WATER 100 ML IV SCH ×4 (02:00→21:52)
[2019-03-13 06:00] LABS: CHLORIDE 110 mEq/L (98-107)
[2019-03-13] MEDS: INSULIN LISPRO 100 UNITS/ML SUBCUT SCH ×5 (06:00→23:57)
[2019-03-13 06:32] LABS: BASOPHILS % 0.1 % (0.0-2.0); EOSINOPHILS % 0.7 % (0.0-5.0); HEMOGLOBIN. 8.7 g/dL (14.0-18.0); LYMPHOCYTES % 11.8 % (20.0-50.0); MEAN CORPUSCULAR VOLUME 89.7 fL (80.0-94.0); MEAN PLATELET VOLUME 10.4 fl (7.4-10.4); MONOCYTES % 5.2 % (2.0-8.0); NEUTROPHILS % 82.2 % (40.0-76.0); PLATELET 115 x1000/uL (130-400); RED CELL DISTRIBUTION WIDTH 18.7 % (11.6-14.6)
[2019-03-13] MEDS: BLOOD SUGAR DIAGNOSTIC STRIP TEST SCH ×5 (06:41→23:57)
[2019-03-13] MEDS: PANTOPRAZOLE 40MG DR TABLET PO SCH (06:50)
[2019-03-13] MEDS: VANCOMYCIN 1 G PREMIX 200 ML IV SCH (12:08)
[2019-03-13] MEDS: DEXT 5%/0.45% NACL 1000ML 1,000 ML IV SCH (12:30)
[2019-03-13] MEDS ORDERED: SODIUM HYPOCHLORITE 0.125% 473ML SOLUTION TOP PRN (17:30)
[2019-03-13] MEDS: PANTOPRAZOLE SODIUM 40 MG/VIAL IV SCH (17:48)
[2019-03-14] VITALS (9 sets, daily range): BP systolic 97–125; BP diastolic 50–65
[2019-03-14] MEDS: IPRATROPIUM/ALBUTEROL 0.5-3(2.5)MG/3ML NEB HHN SCH ×6 (00:50→19:59)
[2019-03-14] MEDS: ACETYLCYSTEINE 100MG/ML 10% VIAL 4ML INH SCH ×3 (00:50→15:30)
[2019-03-14] MEDS: PIPERACILLIN/TAZOBACTAM 3.375 G in DEXT 5% WATER 100 ML IV SCH ×4 (04:42→21:32)
[2019-03-14 05:15] LABS: CHLORIDE 111 mEq/L (98-107)
[2019-03-14 05:26] LABS: VANCOMYCIN TROUGH 13.5 ug/mL (5.0-10.0)
[2019-03-14 05:29] LABS: BASOPHILS % 0.3 % (0.0-2.0); EOSINOPHILS % 1.4 % (0.0-5.0); HEMATOCRIT. 23.9 % (42.0-52.0); HEMOGLOBIN. 7.9 g/dL (14.0-18.0); LYMPHOCYTES % 15.7 % (20.0-50.0); MEAN CORPUSCULAR HEMOGLOBIN 29.7 pg (28.0-32.0); NEUTROPHILS % 75.6 % (40.0-76.0); PLATELET 121 x1000/uL (130-400); RED BLOOD CELL COUNT 2.66 mill/uL (4.7-6.1)
[2019-03-14 05:40] LABS: INR 1.2; PARTIAL THROMBOPLASTIN TIME 33.1 sec (23.4-31.0); PROTHROMBIN TIME 12.3 sec (9.6-11.0)
[2019-03-14] MEDS: INSULIN LISPRO 100 UNITS/ML SUBCUT SCH ×3 (06:00→18:00)
[2019-03-14] MEDS: VANCOMYCIN 1 G PREMIX 200 ML IV SCH (06:07)
[2019-03-14] MEDS: BLOOD SUGAR DIAGNOSTIC STRIP TEST SCH ×3 (06:20→18:50)
[2019-03-14] MEDS: PANTOPRAZOLE SODIUM 40 MG/VIAL IV SCH ×2 (08:21→20:46)
[2019-03-14] MEDS: DEXT 5%/0.45% NACL 1000ML 1,000 ML IV SCH (08:22)
[2019-03-14] MEDS ORDERED: KCL 20MEQ/100ML PREMIX 100 ML IV ONE (10:00)
[2019-03-14] MEDS: MUPIROCIN 2% OINT 22GM NS SCH ×2 (10:45→20:47)
[2019-03-14] MEDS ORDERED: MIDAZOLAM HCL 5 MG/5 ML VIAL IV NR (16:04)
[2019-03-14] MEDS ORDERED: MIDAZOLAM HCL 5 MG/5 ML VIAL ONE (16:04)
[2019-03-14] MEDS ORDERED: FENTANYL CITRATE/PF 50MCG/ML 2ML VIAL ONE (16:04)
[2019-03-14] MEDS ORDERED: BACITRACIN/POLYMYXIN B SULFATE OINT 28.35GM TOP ONE (17:02)
[2019-03-14] MEDS: VANCOMYCIN 1250MG in DEXTROSE 5% WATER 250ML IV SCH (22:56)
[2019-03-15] VITALS (12 sets, daily range): BP systolic 95–122; BP diastolic 38–66
[2019-03-15] MEDS: IPRATROPIUM/ALBUTEROL 0.5-3(2.5)MG/3ML NEB HHN SCH ×7 (00:47→23:48)
[2019-03-15] MEDS: ACETYLCYSTEINE 100MG/ML 10% VIAL 4ML INH SCH ×4 (00:47→23:48)
[2019-03-15] MEDS: PIPERACILLIN/TAZOBACTAM 3.375 G in DEXT 5% WATER 100 ML IV SCH ×4 (04:18→22:28)
[2019-03-15] MEDS: INSULIN LISPRO 100 UNITS/ML SUBCUT SCH ×4 (06:00→17:16)
[2019-03-15] MEDS: BLOOD SUGAR DIAGNOSTIC STRIP TEST SCH ×4 (06:00→17:16)
[2019-03-15] MEDS: MUPIROCIN 2% OINT 22GM NS SCH ×2 (08:25→20:41)
[2019-03-15] MEDS: PANTOPRAZOLE SODIUM 40 MG/VIAL IV SCH ×2 (08:25→20:32)
[2019-03-15] MEDS: DEXT 5%/0.45% NACL 1000ML 1,000 ML IV SCH (10:36)
[2019-03-15 12:44] LABS: BG BASE EXCESS 0.2 mmol/L (-2.0-2.0); BG CARBOXYHEMOGLOBIN 0.3 % (0.5-1.5); BG DEOXYHEMOGLOBIN 7.3 % (0.0-5.0); BG FRACTION INSPIRED OXYGEN 21; BG HCO3 ACT 23.7 mmol/L (22.0-26.0); BG METHEMOGLOBIN 0.1 % (0.0-1.5); BG OXYGEN SATURATION 92.7 % (92.0-98.5); BG OXYHEMOGLOBIN 92.3 % (94.0-97.0); BG PCO2 33.6 mmHg (35.0-45.0); BG PH 7.467 (7.350-7.450); BG PO2 62.4 mmHg (75.0-100.0); BG SAMPLE SITE RIGHT RADIAL; BG TOTAL HEMOGLOBIN 8.5 g/dL (12.0-18.0); BG VENT MODE ROOM AIR
[2019-03-15] MEDS: VANCOMYCIN 1250MG in DEXTROSE 5% WATER 250ML IV SCH (16:23)
[2019-03-16] VITALS (12 sets, daily range): BP systolic 81–148; BP diastolic 44–82
[2019-03-16] MEDS: BLOOD SUGAR DIAGNOSTIC STRIP TEST SCH ×4 (00:48→18:03)
[2019-03-16] MEDS: DEXT 5%/0.45% NACL 1000ML 1,000 ML IV SCH (00:49)
[2019-03-16] MEDS: IPRATROPIUM/ALBUTEROL 0.5-3(2.5)MG/3ML NEB HHN SCH ×5 (03:58→20:33)
[2019-03-16] MEDS: PIPERACILLIN/TAZOBACTAM 3.375 G in DEXT 5% WATER 100 ML IV SCH ×4 (04:19→22:26)
[2019-03-16] MEDS: INSULIN LISPRO 100 UNITS/ML SUBCUT SCH ×4 (06:00→18:15)
[2019-03-16] MEDS: ACETYLCYSTEINE 100MG/ML 10% VIAL 4ML INH SCH ×2 (09:01→16:46)
[2019-03-16] MEDS: MUPIROCIN 2% OINT 22GM NS SCH ×2 (09:57→22:21)
[2019-03-16] MEDS: PANTOPRAZOLE SODIUM 40 MG/VIAL IV SCH ×2 (09:57→22:13)
[2019-03-16] MEDS ORDERED: METHYLPREDNISOLONE SOD SUCC 125 MG/2 ML VIAL IV NR (11:00)
[2019-03-16] MEDS: VANCOMYCIN 1250MG in DEXTROSE 5% WATER 250ML IV SCH (11:38)
[2019-03-16] MEDS ORDERED: FUROSEMIDE 40MG/4ML VIAL IVP NR (11:45)
[2019-03-16 11:47] LABS: BG BASE EXCESS -0.1 mmol/L (-2.0-2.0); BG CARBOXYHEMOGLOBIN 0.1 % (0.5-1.5); BG DEOXYHEMOGLOBIN 6.5 % (0.0-5.0); BG FRACTION INSPIRED OXYGEN 28; BG HCO3 ACT 23.8 mmol/L (22.0-26.0); BG METHEMOGLOBIN 0.3 % (0.0-1.5); BG OXYGEN SATURATION 93.5 % (92.0-98.5); BG OXYHEMOGLOBIN 93.1 % (94.0-97.0); BG PCO2 35.7 mmHg (35.0-45.0); BG PH 7.441 (7.350-7.450); BG PO2 67.2 mmHg (75.0-100.0); BG SAMPLE SITE RIGHT RADIAL; BG TOTAL HEMOGLOBIN 10.3 g/dL (12.0-18.0); BG VENT MODE NASAL CANNULA
[2019-03-16] MEDS ORDERED: ACETAMINOPHEN 650MG/20.3ML UDC GT PRN (15:00)
[2019-03-16 16:08] LABS: HEMATOCRIT. 28.6 % (42.0-52.0); HEMOGLOBIN. 9.3 g/dL (14.0-18.0); MEAN CORPUSCULAR VOLUME 89.1 fL (80.0-94.0); MEAN PLATELET VOLUME 10.1 fl (7.4-10.4); PLATELET 146 x1000/uL (130-400); RED BLOOD CELL COUNT 3.21 mill/uL (4.7-6.1); RED CELL DISTRIBUTION WIDTH 18.8 % (11.6-14.6)
[2019-03-16 16:15] LABS: CHLORIDE 106 mEq/L (98-107)
[2019-03-16 16:43] LABS: PLATELET ESTIMATE NORMAL
[2019-03-16] MEDS ORDERED: POTASSIUM CHLORIDE 20MEQ/PACKET PO NR (17:30)
[2019-03-16] MEDS ORDERED: POTASSIUM CHLORIDE INJ 40 MEQ in DEXT 5% WATER 250 ML IV NR (18:30)
[2019-03-16] MEDS: METHYLPREDNISOLONE SOD SUCC 40 MG/ML VIAL IV SCH (20:29)
[2019-03-17] VITALS (12 sets, daily range): BP systolic 81–116; BP diastolic 44–64
[2019-03-17] MEDS: IPRATROPIUM/ALBUTEROL 0.5-3(2.5)MG/3ML NEB HHN SCH ×6 (00:23→20:26)
[2019-03-17] MEDS: BLOOD SUGAR DIAGNOSTIC STRIP TEST SCH ×4 (00:41→18:13)
[2019-03-17] MEDS: INSULIN LISPRO 100 UNITS/ML SUBCUT SCH ×4 (00:52→18:00)
[2019-03-17] MEDS: METHYLPREDNISOLONE SOD SUCC 40 MG/ML VIAL IV SCH ×3 (04:34→20:59)
[2019-03-17] MEDS: PIPERACILLIN/TAZOBACTAM 3.375 G in DEXT 5% WATER 100 ML IV SCH ×4 (04:34→23:19)
[2019-03-17] MEDS: VANCOMYCIN 1250MG in DEXTROSE 5% WATER 250ML IV SCH (05:59)
[2019-03-17] MEDS: MUPIROCIN 2% OINT 22GM NS SCH ×2 (09:00→21:04)
[2019-03-17 10:20] LABS: CHLORIDE 108 mEq/L (98-107)
[2019-03-17 10:22] LABS: HEMATOCRIT. 26.2 % (42.0-52.0); HEMOGLOBIN. 8.6 g/dL (14.0-18.0); MEAN CORPUSCULAR HEMOGLOBIN 29.8 pg (28.0-32.0); MEAN CORPUSCULAR VOLUME 90.8 fL (80.0-94.0); MEAN PLATELET VOLUME 10.2 fl (7.4-10.4); PLATELET 130 x1000/uL (130-400); RED BLOOD CELL COUNT 2.89 mill/uL (4.7-6.1); RED CELL DISTRIBUTION WIDTH 18.5 % (11.6-14.6)
[2019-03-17] MEDS: PANTOPRAZOLE SODIUM 40 MG/VIAL IV SCH ×2 (11:42→22:14)
[2019-03-17 13:57] LABS: PLATELET ESTIMATE NORMAL
[2019-03-17] MEDS ORDERED: MAGNESIUM 2 G PREMIX 50 ML IV SCH (14:00)
[2019-03-18] VITALS (9 sets, daily range): BP systolic 99–120; BP diastolic 54–68
[2019-03-18] MEDS: BLOOD SUGAR DIAGNOSTIC STRIP TEST SCH ×3 (00:05→12:00)
[2019-03-18] MEDS: VANCOMYCIN 1250MG in DEXTROSE 5% WATER 250ML IV SCH (00:06)
[2019-03-18] MEDS: IPRATROPIUM/ALBUTEROL 0.5-3(2.5)MG/3ML NEB HHN SCH ×4 (00:11→12:28)
[2019-03-18] MEDS: INSULIN LISPRO 100 UNITS/ML SUBCUT SCH ×3 (00:16→12:00)
[2019-03-18] MEDS: METHYLPREDNISOLONE SOD SUCC 40 MG/ML VIAL IV SCH ×2 (04:39→13:53)
[2019-03-18 06:29] LABS: HEMATOCRIT. 25.5 % (42.0-52.0); HEMOGLOBIN. 8.3 g/dL (14.0-18.0); MEAN CORPUSCULAR HEMOGLOBIN 29.7 pg (28.0-32.0); MEAN CORPUSCULAR VOLUME 91.5 fL (80.0-94.0); MEAN PLATELET VOLUME 10.5 fl (7.4-10.4); PLATELET 130 x1000/uL (130-400); RED BLOOD CELL COUNT 2.78 mill/uL (4.7-6.1)
[2019-03-18 07:49] LABS: CHLORIDE 110 mEq/L (98-107)
[2019-03-18] MEDS: PANTOPRAZOLE SODIUM 40 MG/VIAL IV SCH (09:44)
[2019-03-18] MEDS: MUPIROCIN 2% OINT 22GM NS SCH (09:45)
[2019-03-19 15:20] LABS: PLATELET ESTIMATE NORMAL
[2019-04-13] MEDS ORDERED: GENTAMICIN SULF 40MG/ML 2ML VIAL ONE (10:50)
== END 2019-03-18 16:47 | DRG 871 ==
LOC: ER 15:42 → EDBEDREQ 16:32 → 3WST 16:38 → EDBEDREQTM 16:42 → EDBEDREQ 16:42 → ENRESERV 19:08 → 3WST 21:48
PROVIDERS: ADMIT Internal Medicine; ATTEND Internal Medicine
PROC: 30233N1 Transfusion of Nonautologous Red Blood Cells into Peripheral Vein, Percutaneous Approach (ICD-10-PCS; 2019-03-11)
PROC: 02HV33Z Insertion of Infusion Device into Superior Vena Cava, Percutaneous Approach (ICD-10-PCS; 2019-03-12)
PROC: B548ZZA Ultrasonography of Superior Vena Cava, Guidance (ICD-10-PCS; 2019-03-12)
PROC: 0D20XUZ Change Feeding Device in Upper Intestinal Tract, External Approach (ICD-10-PCS; principal; 2019-03-14)
PROC: 0DJ68ZZ Inspection of Stomach, Via Natural or Artificial Opening Endoscopic (ICD-10-PCS; 2019-03-14)
DX: A41.9 Sepsis, unspecified organism (principal); L89.154 Pressure ulcer of sacral region, stage 4; L89.893 Pressure ulcer of other site, stage 3; E43 Unspecified severe protein-calorie malnutrition; J69.0 Pneumonitis due to inhalation of food and vomit; J96.01 Acute respiratory failure with hypoxia; K29.71 Gastritis, unspecified, with bleeding; K94.23 Gastrostomy malfunction; K21.9 Gastro-esophageal reflux disease without esophagitis; E86.0 Dehydration; E11.22 Type 2 diabetes mellitus with diabetic chronic kidney disease; F03.90 Unspecified dementia, unspecified severity, without behavioral disturbance, psychotic disturbance, mood disturbance, and anxiety; J44.9 Chronic obstructive pulmonary disease, unspecified; Z86.73 Personal history of transient ischemic attack (TIA), and cerebral infarction without residual deficits; K44.9 Diaphragmatic hernia without obstruction or gangrene; D64.9 Anemia, unspecified; N18.9 Chronic kidney disease, unspecified; N40.0 Benign prostatic hyperplasia without lower urinary tract symptoms; Z74.01 Bed confinement status; D69.6 Thrombocytopenia, unspecified; L89.890 Pressure ulcer of other site, unstageable; M24.50 Contracture, unspecified joint; M19.90 Unspecified osteoarthritis, unspecified site; E83.42 Hypomagnesemia; E87.6 Hypokalemia; I12.9 Hypertensive chronic kidney disease with stage 1 through stage 4 chronic kidney disease, or unspecified chronic kidney disease; G89.29 Other chronic pain; R13.10 Dysphagia, unspecified; Z68.26 Body mass index [BMI] 26.0-26.9, adult
CPT/HCPCS: 36415; 36600; 71045; 74018; 76937; 80048; 80202; 81003; 82270; 82375; 82805; 82962; 83605; 83735; 83880; 84145; 84484; 85014; 85018; 85027; 86850; 86900; 86920; 93005; 94003; 94640; 96365; 99291; C9113; J1580; J1815; J1940; J1956; J2250; J2543; J2920; J2930; J3010; J3370; J3475; J3480; J3490; J7030; J7040; J7060; J7608; J7611; J7620; P9016; A4315

== ENCOUNTER 2019-04-07 11:08 | Inpatient (IN) | payer MEDICARE, MEDICAID ==
[~2019-04-07] VITALS: Ht 167.6 cm; Wt 67.4 kg
[2019-04-07] MEDS ORDERED: ACETAMINOPHEN 650MG SUPP PR STA (11:21)
[2019-04-07] MEDS ORDERED: PIPERACILLIN/TAZ 3.375G PREMIX 50 ML IV ONE (11:30)
[2019-04-07] MEDS ORDERED: VANCOMYCIN 1 G PREMIX 200 ML IV ONE (11:30)
[2019-04-07] MEDS ORDERED: SODIUM CHLORIDE 0.9% 1000ML BAG (SEPSIS BOLUS) IV ONE (11:30)
[2019-04-07 11:39] LABS: BASOPHILS % 0.2 % (0.0-2.0); HEMATOCRIT. 35.1 % (42.0-52.0); LYMPHOCYTES % 10.6 % (20.0-50.0); MEAN CORPUSCULAR HEMOGLOBIN 29.3 pg (28.0-32.0); MEAN CORPUSCULAR VOLUME 93.6 fL (80.0-94.0); MEAN PLATELET VOLUME 10.3 fl (7.4-10.4); MONOCYTES % 5.9 % (2.0-8.0); NEUTROPHILS % 83.3 % (40.0-76.0); PLATELET 199 x1000/uL (130-400); RED BLOOD CELL COUNT 3.76 mill/uL (4.7-6.1); RED CELL DISTRIBUTION WIDTH 19.6 % (11.6-14.6)
[2019-04-07 11:43] LABS: CHLORIDE 115 mEq/L (98-107)
[2019-04-07 12:04] LABS: INR 1.2; PROTHROMBIN TIME 12.3 sec (9.6-11.0)
[2019-04-07] MEDS ORDERED: ALBUTEROL (0.083%) 2.5MG/3ML NEB HHN STA (12:24)
[2019-04-07] MEDS ORDERED: METHYLPREDNISOLONE SOD SUCC 125 MG/2 ML VIAL IV STA (12:24)
[2019-04-07] MEDS ORDERED: MAGNESIUM 2 G PREMIX 50 ML IV STA (12:24)
[2019-04-07] MEDS ORDERED: IPRATROPIUM BROMIDE (0.02%) 0.5MG/2.5ML NEB HHN STA (12:24)
[2019-04-07 13:48] LABS: BG BASE EXCESS -0.5 mmol/L (-2.0-2.0); BG BILEVEL POS AIRWAY PRESSURE 15/5; BG CARBOXYHEMOGLOBIN 0.3 % (0.5-1.5); BG DEOXYHEMOGLOBIN 4.6 % (0.0-5.0); BG FRACTION INSPIRED OXYGEN 40; BG HCO3 ACT 24.4 mmol/L (22.0-26.0); BG METHEMOGLOBIN 0.2 % (0.0-1.5); BG OXYGEN SATURATION 95.4 % (92.0-98.5); BG OXYHEMOGLOBIN 94.9 % (94.0-97.0); BG PCO2 40.7 mmHg (35.0-45.0); BG PH 7.395 (7.350-7.450); BG SAMPLE SITE RIGHT BRACHIAL; BG VENT MODE MASK - BIPAP
[2019-04-07] MEDS ORDERED: LIDOCAINE HCL 1% 20ML VIAL (Pyxis) INJ ONE (13:56)
[2019-04-07] MEDS ORDERED: IBUPROFEN 600MG TABLET GT ONE (14:15)
[2019-04-07 20:00] VITALS: BP_SYST 103; BP_SYST 111; BP_DIAS 58; BP_DIAS 60
[2019-04-07] MEDS ORDERED: VANCOMYCIN 1 G PREMIX 200 ML IV SCH (21:00)
[2019-04-07 22:00] VITALS: BP 83/46
[2019-04-07] MEDS: PIPERACILLIN/TAZOBACTAM 3.375 G in DEXT 5% WATER 100 ML IV SCH (22:59)
[2019-04-08] VITALS (12 sets, daily range): BP systolic 78–110; BP diastolic 42–63
[2019-04-08] MEDS ORDERED: VANCOMYCIN 1 G PREMIX 200 ML IV SCH
[2019-04-08] MEDS: PIPERACILLIN/TAZOBACTAM 3.375 G in DEXT 5% WATER 100 ML IV SCH ×4 (03:43→21:42)
[2019-04-08 07:09] LABS: CHLORIDE 118 mEq/L (98-107)
[2019-04-08 07:18] LABS: BASOPHILS % 0.1 % (0.0-2.0); HEMATOCRIT. 32.2 % (42.0-52.0); HEMOGLOBIN. 10.4 g/dL (14.0-18.0); LYMPHOCYTES % 13.3 % (20.0-50.0); MEAN CORPUSCULAR HEMOGLOBIN 30.3 pg (28.0-32.0); MEAN CORPUSCULAR VOLUME 94.3 fL (80.0-94.0); MEAN PLATELET VOLUME 10.8 fl (7.4-10.4); MONOCYTES % 5.2 % (2.0-8.0); NEUTROPHILS % 81.4 % (40.0-76.0); PLATELET 129 x1000/uL (130-400); RED BLOOD CELL COUNT 3.41 mill/uL (4.7-6.1); RED CELL DISTRIBUTION WIDTH 19.5 % (11.6-14.6)
[2019-04-08 08:08] LABS: BG BASE EXCESS 2.1 mmol/L (-2.0-2.0); BG BILEVEL POS AIRWAY PRESSURE 15/5; BG CARBOXYHEMOGLOBIN 0.1 % (0.5-1.5); BG DEOXYHEMOGLOBIN 4.4 % (0.0-5.0); BG FRACTION INSPIRED OXYGEN 50; BG HCO3 ACT 26.3 mmol/L (22.0-26.0); BG METHEMOGLOBIN 0.1 % (0.0-1.5); BG OXYGEN SATURATION 95.6 % (92.0-98.5); BG OXYHEMOGLOBIN 95.4 % (94.0-97.0); BG PH 7.446 (7.350-7.450); BG PO2 80.4 mmHg (75.0-100.0); BG SAMPLE SITE RIGHT BRACHIAL; BG TOTAL HEMOGLOBIN 9.3 g/dL (12.0-18.0); BG VENT MODE MASK - BIPAP
[2019-04-08] MEDS ORDERED: KCL 20MEQ/100ML PREMIX 100 ML IV SCH (09:00)
[2019-04-08] MEDS ORDERED: IPRATROPIUM/ALBUTEROL 0.5-3(2.5)MG/3ML NEB HHN PRN (13:45)
[2019-04-08] MEDS ORDERED: SODIUM CHLORIDE 10% FOR INH 15ML VIAL NEB INH NR (15:00)
[2019-04-08] MEDS ORDERED: DEXT 5%/0.45% NACL KCL 10MEQ/L 1,000 ML IV NR (15:00)
[2019-04-08] MEDS: ACETYLCYSTEINE 100MG/ML 10% VIAL 4ML INH SCH (17:09)
[2019-04-08] MEDS: IPRATROPIUM/ALBUTEROL 0.5-3(2.5)MG/3ML NEB HHN SCH ×2 (17:09→20:15)
[2019-04-08] MEDS: VANCOMYCIN 1250MG in DEXTROSE 5% WATER 250ML IV SCH (17:43)
[2019-04-08] MEDS: ACETAMINOPHEN 650MG/20.3ML UDC PO PRN (17:44)
[2019-04-08 18:19] LABS: CLARITY URINE CLOUDY (CLEAR); COLOR URINE YELLOW (YELLOW); KETONES URINE NEGATIVE (NEGATIVE); LEUKOCYTE ESTERASE URINE NEGATIVE (NEGATIVE); NITRITE URINE NEGATIVE (NEGATIVE); OCCULT BLOOD URINE NEGATIVE (NEGATIVE); PH URINE 5.5 (4.5-8.0); PROTEIN URINE 1+ (NEGATIVE); SPECIFIC GRAVITY URINE 1.029 (1.005-1.030)
[2019-04-09] VITALS (13 sets, daily range): BP systolic 83–113; BP diastolic 45–67
[2019-04-09] MEDS: IPRATROPIUM/ALBUTEROL 0.5-3(2.5)MG/3ML NEB HHN SCH ×6 (00:22→21:01)
[2019-04-09] MEDS: ACETYLCYSTEINE 100MG/ML 10% VIAL 4ML INH SCH ×3 (00:22→16:13)
[2019-04-09] MEDS: ACETAMINOPHEN 650MG/20.3ML UDC PO PRN ×3 (01:58→18:35)
[2019-04-09] MEDS: PIPERACILLIN/TAZOBACTAM 3.375 G in DEXT 5% WATER 100 ML IV SCH ×4 (04:09→22:14)
[2019-04-09] MEDS: ZINC SULFATE 220 MG ( 50 ) CAPSULE PO SCH (08:47)
[2019-04-09] MEDS: ASCORBIC ACID 500 MG TABLET PO SCH (08:47)
[2019-04-09 10:26] LABS: BASOPHILS % 0.2 % (0.0-2.0); EOSINOPHILS % 0.1 % (0.0-5.0); HEMOGLOBIN. 7.6 g/dL (14.0-18.0); LYMPHOCYTES % 14.1 % (20.0-50.0); MEAN CORPUSCULAR HEMOGLOBIN 29.8 pg (28.0-32.0); MEAN CORPUSCULAR VOLUME 93.7 fL (80.0-94.0); MONOCYTES % 4.6 % (2.0-8.0); RED BLOOD CELL COUNT 2.56 mill/uL (4.7-6.1); RED CELL DISTRIBUTION WIDTH 19.1 % (11.6-14.6)
[2019-04-09 10:28] LABS: CHLORIDE 118 mEq/L (98-107)
[2019-04-09 11:10] LABS: MEAN PLATELET VOLUME 10.9 fl (7.4-10.4); PLATELET 120 x1000/uL (130-400); PLATELET ESTIMATE SLIGHTLY DECREASED
[2019-04-09] MEDS: VANCOMYCIN 1250MG in DEXTROSE 5% WATER 250ML IV SCH (11:39)
[2019-04-09] MEDS ORDERED: POTASSIUM CHLORIDE 20MEQ/PACKET PO SCH (12:30)
[2019-04-09 13:30] LABS: HEMATOCRIT 22.9 % (42.0-52.0); HEMOGLOBIN 7.3 g/dL (14.0-18.0)
[2019-04-10] VITALS (11 sets, daily range): BP systolic 96–130; BP diastolic 51–69
[2019-04-10] MEDS: ACETYLCYSTEINE 100MG/ML 10% VIAL 4ML INH SCH ×3 (01:06→17:49)
[2019-04-10] MEDS: IPRATROPIUM/ALBUTEROL 0.5-3(2.5)MG/3ML NEB HHN SCH ×6 (01:07→20:20)
[2019-04-10] MEDS: PIPERACILLIN/TAZOBACTAM 3.375 G in DEXT 5% WATER 100 ML IV SCH ×4 (05:42→21:37)
[2019-04-10] MEDS: VANCOMYCIN 1250MG in DEXTROSE 5% WATER 250ML IV SCH (06:34)
[2019-04-10 07:29] LABS: BASOPHILS % 0.1 % (0.0-2.0); HEMOGLOBIN. 7.9 g/dL (14.0-18.0); LYMPHOCYTES % 16.8 % (20.0-50.0); MEAN CORPUSCULAR HEMOGLOBIN 29.7 pg (28.0-32.0); MEAN CORPUSCULAR VOLUME 93.7 fL (80.0-94.0); MONOCYTES % 5.3 % (2.0-8.0); NEUTROPHILS % 76.8 % (40.0-76.0); PLATELET 101 x1000/uL (130-400); RED BLOOD CELL COUNT 2.67 mill/uL (4.7-6.1); RED CELL DISTRIBUTION WIDTH 18.9 % (11.6-14.6)
[2019-04-10 07:37] LABS: CHLORIDE 118 mEq/L (98-107)
[2019-04-10 07:46] LABS: PHOSPHORUS 1.7 mg/dL (2.5-4.9)
[2019-04-10] MEDS: ASCORBIC ACID 500 MG TABLET PO SCH (09:15)
[2019-04-10] MEDS: ZINC SULFATE 220 MG ( 50 ) CAPSULE PO SCH (09:15)
[2019-04-10 11:26] LABS: TOTAL IRON BINDING CAPACITY 132 ug/dL (250-450)
[2019-04-10] MEDS ORDERED: POTASSIUM PHOS,M-BASIC-D-BASIC 15 MMOL in DEXT 5% WATER 245 ML IV SCH (12:00)
[2019-04-10] MEDS: ACETAMINOPHEN 650MG/20.3ML UDC PO PRN (16:47)
[2019-04-11] VITALS (15 sets, daily range): BP systolic 95–131; BP diastolic 50–77
[2019-04-11] MEDS: IPRATROPIUM/ALBUTEROL 0.5-3(2.5)MG/3ML NEB HHN SCH ×6 (00:45→20:52)
[2019-04-11] MEDS: ACETYLCYSTEINE 100MG/ML 10% VIAL 4ML INH SCH ×3 (00:46→16:10)
[2019-04-11] MEDS: VANCOMYCIN 1250MG in DEXTROSE 5% WATER 250ML IV SCH (01:38)
[2019-04-11] MEDS: ACETAMINOPHEN 650MG/20.3ML UDC PO PRN (03:18)
[2019-04-11] MEDS: PIPERACILLIN/TAZOBACTAM 3.375 G in DEXT 5% WATER 100 ML IV SCH ×4 (03:32→21:27)
[2019-04-11 07:23] LABS: BASOPHILS % 0.1 % (0.0-2.0); EOSINOPHILS % 1.1 % (0.0-5.0); HEMATOCRIT. 22.5 % (42.0-52.0); HEMOGLOBIN. 7.2 g/dL (14.0-18.0); LYMPHOCYTES % 18.9 % (20.0-50.0); MEAN CORPUSCULAR HEMOGLOBIN 29.7 pg (28.0-32.0); MEAN CORPUSCULAR VOLUME 92.9 fL (80.0-94.0); MEAN PLATELET VOLUME 11.1 fl (7.4-10.4); MONOCYTES % 6.1 % (2.0-8.0); NEUTROPHILS % 73.8 % (40.0-76.0); PLATELET 115 x1000/uL (130-400); RED BLOOD CELL COUNT 2.42 mill/uL (4.7-6.1); RED CELL DISTRIBUTION WIDTH 18.8 % (11.6-14.6)
[2019-04-11 07:41] LABS: CHLORIDE 114 mEq/L (98-107)
[2019-04-11 07:47] LABS: PHOSPHORUS 2.3 mg/dL (2.5-4.9)
[2019-04-11] MEDS: ZINC SULFATE 220 MG ( 50 ) CAPSULE PO SCH (09:04)
[2019-04-11] MEDS: ASCORBIC ACID 500 MG TABLET PO SCH (09:04)
[2019-04-11] MEDS ORDERED: CEFTRIAXONE 1 G PREMIX 50 ML IV SCH (15:00)
[2019-04-11 17:00] LABS: HEMATOCRIT 25.7 % (42.0-52.0); HEMOGLOBIN 8.3 g/dL (14.0-18.0)
[2019-04-11] MEDS: FERROUS SULFATE 325MG TABLET PO SCH (18:28)
[2019-04-11] MEDS: BUDESONIDE 0.5MG/2ML NEB HHN SCH (20:52)
[2019-04-11] MEDS: FAMOTIDINE 20MG/2ML VIAL IV SCH (21:27)
[2019-04-12] VITALS (11 sets, daily range): BP systolic 97–123; BP diastolic 57–78
[2019-04-12] MEDS: ACETAMINOPHEN 650MG/20.3ML UDC PO PRN ×2 (01:02→11:43)
[2019-04-12] MEDS: IPRATROPIUM/ALBUTEROL 0.5-3(2.5)MG/3ML NEB HHN SCH ×6 (01:16→20:35)
[2019-04-12] MEDS: PIPERACILLIN/TAZOBACTAM 3.375 G in DEXT 5% WATER 100 ML IV SCH ×2 (03:23→09:03)
[2019-04-12] MEDS: ACETYLCYSTEINE 100MG/ML 10% VIAL 4ML INH SCH ×2 (07:42→15:44)
[2019-04-12] MEDS: BUDESONIDE 0.5MG/2ML NEB HHN SCH ×2 (07:42→20:35)
[2019-04-12] MEDS: ZINC SULFATE 220 MG ( 50 ) CAPSULE PO SCH (08:54)
[2019-04-12] MEDS: FERROUS SULFATE 325MG TABLET PO SCH (08:54)
[2019-04-12] MEDS: FAMOTIDINE 20MG/2ML VIAL IV SCH ×2 (08:54→21:02)
[2019-04-12] MEDS: ASCORBIC ACID 500 MG TABLET PO SCH (08:54)
[2019-04-12 11:39] LABS: BASOPHILS % 0.2 % (0.0-2.0); EOSINOPHILS % 1.9 % (0.0-5.0); HEMATOCRIT. 26.9 % (42.0-52.0); HEMOGLOBIN. 8.8 g/dL (14.0-18.0); LYMPHOCYTES % 14.7 % (20.0-50.0); MEAN CORPUSCULAR VOLUME 91.9 fL (80.0-94.0); MEAN PLATELET VOLUME 10.6 fl (7.4-10.4); MONOCYTES % 10.2 % (2.0-8.0); PLATELET 132 x1000/uL (130-400); RED BLOOD CELL COUNT 2.93 mill/uL (4.7-6.1)
[2019-04-12 12:21] LABS: CHLORIDE 109 mEq/L (98-107)
[2019-04-12] MEDS ORDERED: FERROUS SULFATE 300MG/5ML UDC PO SCH (13:00)
[2019-04-12] MEDS ORDERED: NON FORMULARY PATIENT HOME MED XX SCH (15:15)
[2019-04-12] MEDS: COLISTIMETHATE 150MG in SODIUM CHLORIDE 0.9% 100ML IV SCH (18:06)
[2019-04-13] VITALS (11 sets, daily range): BP systolic 91–115; BP diastolic 52–70
[2019-04-13] MEDS: IPRATROPIUM/ALBUTEROL 0.5-3(2.5)MG/3ML NEB HHN SCH ×7 (00:33→23:41)
[2019-04-13] MEDS: ACETYLCYSTEINE 100MG/ML 10% VIAL 4ML INH SCH ×3 (00:33→23:41)
[2019-04-13] MEDS: COLISTIMETHATE 150MG in SODIUM CHLORIDE 0.9% 100ML IV SCH (06:13)
[2019-04-13 07:56] LABS: BASOPHILS % 0.3 % (0.0-2.0); EOSINOPHILS % 2.3 % (0.0-5.0); HEMATOCRIT. 26.3 % (42.0-52.0); HEMOGLOBIN. 8.5 g/dL (14.0-18.0); LYMPHOCYTES % 23.9 % (20.0-50.0); MEAN CORPUSCULAR HEMOGLOBIN 29.6 pg (28.0-32.0); MEAN CORPUSCULAR VOLUME 91.9 fL (80.0-94.0); MEAN PLATELET VOLUME 10.7 fl (7.4-10.4); MONOCYTES % 12.8 % (2.0-8.0); NEUTROPHILS % 60.7 % (40.0-76.0); PLATELET 142 x1000/uL (130-400); RED BLOOD CELL COUNT 2.86 mill/uL (4.7-6.1); RED CELL DISTRIBUTION WIDTH 18.1 % (11.6-14.6)
[2019-04-13 08:03] LABS: CHLORIDE 108 mEq/L (98-107)
[2019-04-13 08:08] LABS: PHOSPHORUS 2.3 mg/dL (2.5-4.9)
[2019-04-13] MEDS: BUDESONIDE 0.5MG/2ML NEB HHN SCH ×2 (08:30→19:50)
[2019-04-13] MEDS: ASCORBIC ACID 500 MG TABLET PO SCH ×3 (09:00→21:00)
[2019-04-13] MEDS: ZINC SULFATE 220 MG ( 50 ) CAPSULE PO SCH (09:00)
[2019-04-13] MEDS: FAMOTIDINE 20MG/2ML VIAL IV SCH ×2 (09:00→21:00)
[2019-04-13] MEDS ORDERED: POTASSIUM PHOS,M-BASIC-D-BASIC 20 MMOL in DEXT 5% WATER 243.3333 ML IV NR (09:30)
[2019-04-13] MEDS ORDERED: MAGNESIUM 2 G PREMIX 50 ML IV NR (09:30)
[2019-04-13] MEDS: ALBUMIN HUMAN 25GM/100ML (25%) IV SCH (12:00)
[2019-04-13] MEDS ORDERED: DOCUSATE SODIUM SUGAR FREE 100MG/10ML UDC NG SCH (12:00)
[2019-04-13] MEDS: METRONIDAZOLE 500MG TABLET PO SCH ×2 (14:15→21:00)
[2019-04-13] MEDS: SULFAMETHOXAZOLE/TRIMETHOPRIM 400/80MG TAB PO SCH ×2 (14:15→21:00)
[2019-04-13] MEDS: DOCUSATE SODIUM SUGAR FREE 100MG/10ML UDC NG SCH (15:59)
[2019-04-13] MEDS: ACETAMINOPHEN 650MG/20.3ML UDC PO PRN (17:45)
[2019-04-14] VITALS (12 sets, daily range): BP systolic 84–103; BP diastolic 53–67
[2019-04-14] MEDS: IPRATROPIUM/ALBUTEROL 0.5-3(2.5)MG/3ML NEB HHN SCH ×5 (04:19→21:45)
[2019-04-14] MEDS: ASCORBIC ACID 500 MG TABLET PO SCH ×3 (05:05→21:38)
[2019-04-14] MEDS: METRONIDAZOLE 500MG TABLET PO SCH ×3 (05:05→21:38)
[2019-04-14 07:11] LABS: CHLORIDE 102 mEq/L (98-107)
[2019-04-14 07:16] LABS: PHOSPHORUS 2.8 mg/dL (2.5-4.9)
[2019-04-14 07:18] LABS: BASOPHILS % 0.3 % (0.0-2.0); EOSINOPHILS % 0.7 % (0.0-5.0); HEMOGLOBIN. 8.3 g/dL (14.0-18.0); LYMPHOCYTES % 18.4 % (20.0-50.0); MEAN CORPUSCULAR HEMOGLOBIN 30.3 pg (28.0-32.0); MEAN CORPUSCULAR VOLUME 91.2 fL (80.0-94.0); MEAN PLATELET VOLUME 10.1 fl (7.4-10.4); MONOCYTES % 11.8 % (2.0-8.0); NEUTROPHILS % 68.8 % (40.0-76.0); PLATELET 167 x1000/uL (130-400); RED BLOOD CELL COUNT 2.74 mill/uL (4.7-6.1); RED CELL DISTRIBUTION WIDTH 18.1 % (11.6-14.6)
[2019-04-14 07:19] LABS: CREATINE KINASE 58 IU/L (39-308)
[2019-04-14] MEDS: ACETYLCYSTEINE 100MG/ML 10% VIAL 4ML INH SCH ×4 (07:53→21:45)
[2019-04-14] MEDS: BUDESONIDE 0.5MG/2ML NEB HHN SCH (07:54)
[2019-04-14] MEDS: DOCUSATE SODIUM SUGAR FREE 100MG/10ML UDC NG SCH ×2 (09:38→18:28)
[2019-04-14] MEDS: FAMOTIDINE 20MG/2ML VIAL IV SCH ×2 (09:38→21:37)
[2019-04-14] MEDS: ZINC SULFATE 220 MG ( 50 ) CAPSULE PO SCH (09:38)
[2019-04-14] MEDS: SULFAMETHOXAZOLE/TRIMETHOPRIM 400/80MG TAB PO SCH ×2 (09:38→21:37)
[2019-04-14] MEDS: ALBUMIN HUMAN 25GM/100ML (25%) IV SCH (09:39)
[2019-04-14] MEDS: TRAMADOL 50MG TABLET GT PRN (11:42)
[2019-04-14] MEDS ORDERED: LACTULOSE 20G/30ML UDC GT PRN (21:30)
[2019-04-15] VITALS (11 sets, daily range): BP systolic 85–127; BP diastolic 51–68
[2019-04-15] MEDS: IPRATROPIUM/ALBUTEROL 0.5-3(2.5)MG/3ML NEB HHN SCH ×6 (00:52→20:15)
[2019-04-15] MEDS: ASCORBIC ACID 500 MG TABLET PO SCH ×3 (05:45→21:09)
[2019-04-15] MEDS: METRONIDAZOLE 500MG TABLET PO SCH ×3 (05:45→21:09)
[2019-04-15] MEDS: ACETYLCYSTEINE 100MG/ML 10% VIAL 4ML INH SCH ×2 (08:28→16:44)
[2019-04-15] MEDS: BUDESONIDE 0.5MG/2ML NEB HHN SCH (08:28)
[2019-04-15] MEDS: SULFAMETHOXAZOLE/TRIMETHOPRIM 400/80MG TAB PO SCH ×2 (08:33→21:09)
[2019-04-15] MEDS: DOCUSATE SODIUM SUGAR FREE 100MG/10ML UDC NG SCH ×2 (08:33→17:55)
[2019-04-15] MEDS: ZINC SULFATE 220 MG ( 50 ) CAPSULE PO SCH (08:33)
[2019-04-15] MEDS: FAMOTIDINE 20MG/2ML VIAL IV SCH ×2 (08:33→21:09)
[2019-04-15] MEDS ORDERED: LACTULOSE 20G/30ML UDC PO SCH (09:45)
[2019-04-15] MEDS: ALBUMIN HUMAN 25GM/100ML (25%) IV SCH (10:02)
[2019-04-15] MEDS: ACETAMINOPHEN 650MG/20.3ML UDC PO PRN (10:09)
[2019-04-15] MEDS: TRAMADOL 50MG TABLET GT PRN ×2 (11:30→15:42)
[2019-04-15 14:02] LABS: BASOPHILS % 0.2 % (0.0-2.0); HEMATOCRIT. 28.4 % (42.0-52.0); HEMOGLOBIN. 9.3 g/dL (14.0-18.0); LYMPHOCYTES % 15.7 % (20.0-50.0); MEAN CORPUSCULAR HEMOGLOBIN 30.2 pg (28.0-32.0); MEAN CORPUSCULAR VOLUME 92.9 fL (80.0-94.0); MEAN PLATELET VOLUME 10.5 fl (7.4-10.4); MONOCYTES % 6.5 % (2.0-8.0); NEUTROPHILS % 76.6 % (40.0-76.0); PLATELET 201 x1000/uL (130-400); RED BLOOD CELL COUNT 3.06 mill/uL (4.7-6.1); RED CELL DISTRIBUTION WIDTH 18.2 % (11.6-14.6)
[2019-04-15 14:09] LABS: CHLORIDE 110 mEq/L (98-107)
[2019-04-15] MEDS ORDERED: NA PHOS,M-B/NA PHOS,DI-BA ENEMA 118ML PR NR (15:00)
[2019-04-15] MEDS ORDERED: LACTULOSE 20G/30ML UDC GT SCH (18:00)
== END 2019-04-15 22:15 | DRG 720 ==
LOC: ER 11:13 → 5EST 13:00 → EDBEDREQ 13:03 → ENRESERV 14:41 → CANRESERV 14:41 → ENRESERV 17:08
PROVIDERS: ADMIT Internal Medicine; ATTEND Internal Medicine
PROC: 02HV33Z Insertion of Infusion Device into Superior Vena Cava, Percutaneous Approach (ICD-10-PCS; 2019-04-07)
PROC: B548ZZA Ultrasonography of Superior Vena Cava, Guidance (ICD-10-PCS; 2019-04-07)
PROC: 5A09357 Assistance with Respiratory Ventilation, Less than 24 Consecutive Hours, Continuous Positive Airway Pressure (ICD-10-PCS; 2019-04-07)
PROC: 5A09357 Assistance with Respiratory Ventilation, Less than 24 Consecutive Hours, Continuous Positive Airway Pressure (ICD-10-PCS; 2019-04-08)
PROC: 5A09357 Assistance with Respiratory Ventilation, Less than 24 Consecutive Hours, Continuous Positive Airway Pressure (ICD-10-PCS; 2019-04-09)
PROC: 5A09357 Assistance with Respiratory Ventilation, Less than 24 Consecutive Hours, Continuous Positive Airway Pressure (ICD-10-PCS; 2019-04-10)
PROC: 30233N1 Transfusion of Nonautologous Red Blood Cells into Peripheral Vein, Percutaneous Approach (ICD-10-PCS; principal; 2019-04-11)
PROC: 5A09357 Assistance with Respiratory Ventilation, Less than 24 Consecutive Hours, Continuous Positive Airway Pressure (ICD-10-PCS; 2019-04-11)
DX: A41.59 Other Gram-negative sepsis (principal); J96.01 Acute respiratory failure with hypoxia; J69.0 Pneumonitis due to inhalation of food and vomit; L89.159 Pressure ulcer of sacral region, unspecified stage; G82.50 Quadriplegia, unspecified; E46 Unspecified protein-calorie malnutrition; E87.0 Hyperosmolality and hypernatremia; E11.22 Type 2 diabetes mellitus with diabetic chronic kidney disease; Z99.81 Dependence on supplemental oxygen; F03.90 Unspecified dementia, unspecified severity, without behavioral disturbance, psychotic disturbance, mood disturbance, and anxiety; D64.9 Anemia, unspecified; E86.0 Dehydration; E87.1 Hypo-osmolality and hyponatremia; K21.9 Gastro-esophageal reflux disease without esophagitis; E86.1 Hypovolemia; N40.0 Benign prostatic hyperplasia without lower urinary tract symptoms; J44.9 Chronic obstructive pulmonary disease, unspecified; E87.6 Hypokalemia; J44.0 Chronic obstructive pulmonary disease with (acute) lower respiratory infection; I50.9 Heart failure, unspecified; I13.0 Hypertensive heart and chronic kidney disease with heart failure and stage 1 through stage 4 chronic kidney disease, or unspecified chronic kidney disease; K44.9 Diaphragmatic hernia without obstruction or gangrene; K59.00 Constipation, unspecified; N18.9 Chronic kidney disease, unspecified; N39.0 Urinary tract infection, site not specified; R47.01 Aphasia; R47.02 Dysphasia; R62.7 Adult failure to thrive; Z16.24 Resistance to multiple antibiotics; Z86.73 Personal history of transient ischemic attack (TIA), and cerebral infarction without residual deficits; Z93.1 Gastrostomy status; Z68.24 Body mass index [BMI] 24.0-24.9, adult; E83.39 Other disorders of phosphorus metabolism
CPT/HCPCS: 36415; 36600; 71045; 74018; 76937; 80048; 80076; 80202; 81003; 82270; 82375; 82550; 82728; 82805; 82962; 83540; 83550; 83605; 83735; 83880; 84100; 84145; 84484; 84550; 85014; 85018; 85651; 86850; 86900; 86920; 87070; 87077; 87186; 93005; 93306; 94640; 94644; 94660; 96365; 99291; A6261; J0696; J0770; J2543; J2930; J3370; J3475; J3480; J3490; J7030; J7040; J7050; J7060; J7131; J7608; J7611; J7620; J7626; P9016; P9047; A4315